=== PATIENT | female | born 1975 ===

== ENCOUNTER 2025-03-27 21:49 | Inpatient (IN) | payer MEDICAID, OTHER ==
[~2025-03-27] VITALS: Ht 154.9 cm; Wt 75.6 kg
--- NOTE | 2025-03-27 22:57 | ED.PDOC ---
SOB-HPI HPI Comments HPI: Poor Historian. 50-year-old female presents to emergency department for flu-like symptoms for two days. She complains of fever,cough/n/v/chills/dizzy/holland. Patient took some ibuprofen at home. Patient is febrile here in the ED. Denies any sick contacts. Patient was found tachycardic in triage with a fever of 102 and blood sugar of 544. Past Medical History: Hypertension, diabetes, hyperlipidemia Past Surgical History: Tonsillectomy and REVIEW OF SYSTEMS: CONSTITUTIONAL: Denies acute: diaphoresis, HEAD: Denies acute: photophobia Eyes: Denies acute: Double vision, vision loss, eye pain, eye discharge. EARS: Denies acute: tinnitus, hearing loss, ear discharge, ear pain, THROAT: Denies acute: sore throat, swelling, difficulty swallowing , pain with swallowing, change in voice. NECK: Denies acute: neck pain, neck swelling, stiff neck. HEART: Denies acute : chest pain, palpitations, LUNGS: Denies acute: SOB, wheezing, cough, hemoptysis ABDOMEN: Denies acute: abdominal pain, diarrhea, melena , hematemesis, hematochezia SKIN: Denies acute: rash, redness, lesions, itchiness. EXTREMITIES: Denies acute: calf pain, numbness, tingling, weakness, denies pain in extremity. Denies acute: Low back pain. Neuro: Denies acute: focal neurological deficit, motor or sensory focal neurological deficit, tremors, seizure like activity, confusion, change in mental status, loss of bowel or bladder function, cauda equina like symptoms. : Denies acute: dysuria, hematuria, flank pain, increase in urinary frequency. PSYCH: Denies acute: hallucination, suicidal ideation, homicidal ideation. FEMALE: Denies acute: abnormal vaginal bleeding, foul odor, unusual discharge. PHYSICAL EXAM: General: -----[id number]---acute distress, awake and alert. Head: normocephalic, atraumatic. Neck: supple, trachea is midline, no swelling. Throat: Normal phonation. Eyes:, no erythema, no purulent discharge, no proptosis, no icterus. Heart: regular tachycardia in the setting of fever, no significant murmur appreciated. Lungs: no apparent respiratory distress, No wheezing, no rhonchi, no crackles. No stridors Clear to auscultation bilaterally. Abdomen: non tender to palpation, non distended, soft, no guarding, no rebound, + bowel sounds. Neuro: Awake, Alert, oriented to name, self, situation, follows commands GCS=15. Speech is normal. Skin: no petechia, no purpura, no cyanosis, slightly-pale, not jaundice. Lower extremities: --no - Pitting edema no deformity, no focal swelling, no calf TTP. Makes eye contact. moves all four extremities. Face: no apparent facial droop. Ambulating in the ED independently. No nuchal rigidity, Kernig's sign, Brudzinski's sign, no meningeal signs. ED COURSE: Time Seen by MD: 21:53 Reviewed notes: Nurses Notes, Allergies Information Source: Patient Was a procedure done? Was a procedure done?: No Differential Dx Differential Diagnosis: Other (Includes but not limited to thyroid disease, encephalopathy, electrolyte abnormality, sepsis, infection, intracranial pathology, drug adverse effects, arrhythmia, kidney insufficiency, ACS, CVA, malignancy, anemia) X-Ray, Labs, Meds, VS Vital Signs Date Time Temp Pulse Resp B/P (MAP) Pulse Ox O2 Delivery O2 Flow Rate FiO2 03/28/25 00:36 102.0 03/27/25 23:14 102.8 137 18 117/75 (89) 94 102.8 Lab Test 03/28/25 01:00 03/27/25 23:49 03/27/25 23:08 03/27/25 22:55 Range/Units Blood Gas Specimen Type Arterial Blood Gas Sample Site Right radial Blood Gas Patient Temperature 37.0 Arterial Blood Date Drawn [id number] Arterial Blood pH 7.356 7.350-7.450 Arterial Blood Partial Pressure CO2 26.0 L 32.0-45.0 mmHg Arterial Blood Partial Pressure O2 72.2 L 83.0-108.0 mmHg Arterial Blood HCO3 14.2 L 21.0-28.0 mmol/L Arterial Blood Oxygen Saturation 93.7 L 94.0-98.0 % Arterial Blood Base Excess -9.6 L -2.0-3.0 mmol/L Arterial Blood Oxyhemoglobin 92.6 L 94.0-98.0 % Arterial Blood Carboxyhemoglobin 0.8 0.5-1.5 % Arterial Blood Methemoglobin 0.4 0.0-1.5 % Denzel Test Yes Blood Gas Total Hemoglobin 13.30 12.0-16.0 g/dL Blood Gas Modality Room air FiO2 % 21.0 Troponin I High Sensitivity < 3 L < 3 L </=34 ng/L White Blood Count 5.5 4.4-10.8 10^3/uL Red Blood Count 4.56 4.0-5.20 10^6/uL Hemoglobin 13.6 12.2-16.2 g/dL Hematocrit 40.8 36.0-46.0 % Mean Corpuscular Volume 89.5 80.0-100.0 fL Mean Corpuscular Hemoglobin 29.8 28.0-32.0 pg Mean Corpuscular Hemoglobin Concent 33.3 32.0-36.0 g/dL Red Cell Distribution Width 13.9 11.8-14.3 % Platelet Count 170 140-450 10^3/uL Mean Platelet Volume 10.5 6.9-10.8 fL Neutrophils (%) (Auto) 87.0 H 37.0-80.0 % Lymphocytes (%) (Auto) 6.9 L 10.0-50.0 % Monocytes (%) (Auto) 5.6 0.0-12.0 % Eosinophils (%) (Auto) 0.2 0.0-7.0 % Basophils (%) (Auto) 0.3 0.0-2.0 % Neutrophils # (Auto) 4.8 1.6-8.6 10 ^3/uL Lymphocytes # (Auto) 0.4 0.4-5.4 10 ^3/uL Monocytes # (Auto) 0.3 0-1.3 10 ^3/uL Eosinophils # (Auto) 0 0-0.8 10 ^3/uL Basophils # (Auto) 0 0-0.2 10 ^3/uL Nucleated Red Blood Cells 0.1 % Sodium Level 134 L 136-145 mmol/L Potassium Level 4.1 3.5-5.1 mmol/L Chloride Level 103 98-107 mmol/L Carbon Dioxide Level 17 L 20-31 mmol/L Anion Gap 14 5-15 Blood Urea Nitrogen 13 9-23 mg/dL Creatinine 0.96 0.550-1.02 mg/dL Glomerular Filtration Rate Calc 72 >90 mL/min BUN/Creatinine Ratio 13.5 10.0-20.0 Serum Glucose 576 *H 74-106 mg/dL Hemoglobin A1c 11.6 H <5.7 % A1C Lactic Acid Level 3.2 *H 0.4-2.0 mmol/L Calcium Level 11.2 H 8.7-10.4 mg/dL Magnesium Level 1.9 1.6-2.6 mg/dL Total Bilirubin 0.8 0.2-1.0 mg/dL Aspartate Amino Transferase (AST) 29 13-40 U/L Alanine Aminotransferase (ALT) 29 7-40 U/L Alkaline Phosphatase 155 H 46-116 U/L Total Protein 7.8 5.7-8.2 g/dL Albumin 4.5 3.2-4.8 g/dL Beta-Hydroxybutyric Acid 2.606 H < 0.4 mmol/L POC Glucose 544 *H 70-106 mg/dl Test 03/27/25 22:53 03/27/25 00:00 Range/Units POC Glucose 515 *H 70-106 mg/dl Influenza Type A Antigen Negative Negative Influenza Type B Antigen Negative Negative SARS-CoV-2 Antigen (Rapid) Negative NEGATIVE Current Medications Medications (Trade) Dose Ordered Sig/Sanjeev Route Start Time Stop Time Status Last Admin Sodium Chloride 1,000 ml @ 1,000 mls/hr Q1H ONCE IV 03/27/25 23:00 03/27/25 23:59 DC 03/28/25 00:00 Acetaminophen (Tylenol Tablet Or Capsule) 1,000 mg ONCE STAT PO 03/27/25 22:54 03/28/25 00:00 DC 03/28/25 00:36 Ondansetron HCl (Zofran) 8 mg ONCE ONCE IV 03/27/25 23:00 03/28/25 00:00 DC 03/28/25 00:36 Insulin Human Regular (InsuLIN R) 5 units ONCE ONCE IV 03/27/25 23:00 03/28/25 00:00 DC 03/28/25 00:30 Ceftriaxone Sodium 50 ml @ 100 mls/hr ONCE ONCE IV 03/28/25 00:15 03/28/25 00:44 DC 03/28/25 00:47 [facility] [id number] [place] [id number] Ph: [phone] DIAGNOSTIC IMAGING Diagnostic Imaging Report : [id number] Signed PATIENT: TUNDE ESTEVESCT: [id number] UNIT: [id number] : 1975 LOC: ER ROOM / BED: / AGE / SEX: 50 / F ADM STATUS: REG ER SERVICE 45 ORDERING PHYSICIAN: DURGA MARCOS DO PROCEDURE(s): CXRP - CHEST PORTABLE REASON: fever,cough/n/v/chills/dizzy/holland. ORDER NUMBER(s): [id number], ACCESSION NUMBER(s): [id number] CHEST RADIOGRAPH Indication: fever,cough/n/v/chills/dizzy/holland. Technique: Single frontal view of the chest was obtained Comparison: None FINDINGS: Lines and Tubes: None Lungs: Clear Pleura: No effusion. No pneumothorax. Cardiomediastinal contours: Unremarkable Bones: Unremarkable IMPRESSION: Clear lungs. ATED BY: EMELIA CASIANO DO DICTATED DATE/TIME: 03/28/2531 SIGNED BY: EMLEIA CASIANO DO SIGNED DATE/TIME: 03/28/2531 CC: Time of 1ST Reevaluation: 01:11 Reevaluation 1ST: Improved Patient Education/Counseling: Diagnosis, Treatment Family Education/Counseling: Other Comments Patient presented with the above HPI.---flu-like symptoms and generalized weakness---workup was initiated. patient was found with the above mentioned diagnosis. the following medications were ordered: please refer to order lists of meds and tests obtained by myself Dr. Marcos. Patient ED course and VS have been stabilized. Patient has been reassessed in the ED and remained in a stable condition. Pertinent incidental findings were discussed with the patient and/or family. Patient/family voices understanding and is agreeable with plan. Patient has been observed in the ED adequate length of time to insure improvement/stability. Escalation of care considered: Consideration of escalation to observation or admission Hyperglycemia was treated. Patient was given fluids and insulin. Patient was ADMITTED to the medicine team for further evaluation and treatment of their presentation. All the reports of any imaging studies that were ordered by myself were reviewed by myself. Departure 1 Departure Time of Disposition: 23:03 Impression: Primary Impression: Sepsis Additional Impressions: Hyperglycemia Fever and chills Disposition: 09 ADMITTED INPATIENT Admit to: Tele Condition: Guarded Discharged With: Self Critical Care Note Critical Care Time?: Yes (35 min-critical care time only) Heart Score Heart Score: Heart Score Response (Comments) Value History Slightly Suspicious 0 EKG Normal 0 Age 45-64 1 Risk Factors >3 or Hx ASHD 2 Troponin Normal limit 0 Total 3 DURGA MARCOS DO Mar 27, 2025 22:57
[2025-03-27 23:34] LABS: Basophils # (auto) 0 10 ^3/uL (0-0.2); Basophils % (auto) 0.3 % (0.0-2.0); Eosinophils # (auto) 0 10 ^3/uL (0-0.8); Eosinophils % (auto) 0.2 % (0.0-7.0); Hematocrit 40.8 % (36.0-46.0); Hemoglobin 13.6 g/dL (12.2-16.2); Lymphocytes # (auto) 0.4 10 ^3/uL (0.4-5.4); Lymphocytes % (auto) 6.9 % (10.0-50.0); Mean Corpuscular Hemoglobin 29.8 pg (28.0-32.0); Mean Corpuscular Hgb Conc. 33.3 g/dL (32.0-36.0); Mean Corpuscular Volume 89.5 fL (80.0-100.0); Monocytes # (auto) 0.3 10 ^3/uL (0-1.3); Monocytes % (auto) 5.6 % (0.0-12.0); Neutrophils # (auto) 4.8 10 ^3/uL (1.6-8.6); Nucleated Red Blood Cells % 0.1 %; Platelet Count (auto) 170 10^3/uL (140-450); Red Blood Cells 4.56 10^6/uL (4.0-5.20); Red Cell Distribution Width 13.9 % (11.8-14.3); White Blood Cell 5.5 10^3/uL (4.4-10.8)
[2025-03-27 23:53] LABS: Alanine Aminotransferase 29 U/L (7-40); Albumin 4.5 g/dL (3.2-4.8); Anion Gap 14 (5-15); Aspartate Aminotransferase 29 U/L (13-40); BUN/Creatinine Ratio 13.5 (10.0-20.0); Blood Urea Nitrogen 13 mg/dL (9-23); Chloride 103 mmol/L (98-107); Magnesium 1.9 mg/dL (1.6-2.6); Potassium 4.1 mmol/L (3.5-5.1); Total Protein 7.8 g/dL (5.7-8.2)
[2025-03-27 23:54] LABS: Bilirubin, Total 0.8 mg/dL (0.2-1.0)
[2025-03-27 23:55] LABS: Lactic Acid w/Reflex 3.2 mmol/L (0.4-2.0)
[2025-03-27 23:56] LABS: Carbon Dioxide 17 mmol/L (20-31); Sodium 134 mmol/L (136-145)
[2025-03-27 23:57] LABS: Alkaline Phosphatase 155 U/L (46-116); Calcium 11.2 mg/dL (8.7-10.4)
[2025-03-27 23:58] LABS: Glucose 576 mg/dL (74-106)
[2025-03-28 00:08] LABS: Rapid Influenza A Negative (Negative); Rapid Influenza B Negative (Negative)
[2025-03-28 00:09] LABS: COVID19 ANTIGEN SOFIA FIA NEGATIVE (NEGATIVE)
[2025-03-28] MEDS: InsuLIN REG 1unit/0.01ml Soln (100units/ml) IV ONE (00:30)
--- NOTE | 2025-03-28 00:35 | DVH ---
CHEST RADIOGRAPH Indication: fever,cough/n/v/chills/dizzy/holland. Technique: Single frontal view of the chest was obtained Comparison: None FINDINGS: Lines and Tubes: None Lungs: Clear Pleura: No effusion. No pneumothorax. Cardiomediastinal contours: Unremarkable Bones: Unremarkable IMPRESSION: Clear lungs.
[2025-03-28] MEDS: ONDANSETRON HCL 4 MG/2 ML VIAL IV ONE (00:36)
[2025-03-28] MEDS: ACETAMINOPHEN 500 MG TAB or CAP PO STA (00:36)
[2025-03-28] MEDS: cefTRIAXone 1GM/50ML D5W 50 ML IV ONE ×2 (00:47→13:46)
[2025-03-28 01:09] LABS: Base Excess -9.6 mmol/L (-2.0-3.0)
[2025-03-28] MEDS ORDERED: DEXTROSE (50%) 50ML SYRG IV PRN ×4 (01:30→20:15)
--- NOTE | 2025-03-28 01:49 | DVHHPRES ---
History of Present Illness Resident Creating Document: REJI BROWNE History of Present Illness This is a 50-year-old female with past medical history of primary hypertension, type 2 diabetes mellitus, dyslipidemia who presented to the ED generalized body aches associated with nausea vomiting and dizziness. Patient also reported mild chills and headache, which according to the patient started two days ago but got worse recently prompting the visit to the ED. the patient states that she is not able to tolerate any food or liquids and is currently complaining of abdominal pain and nausea. On admission, patient was alert and oriented but slightly dizzy complaining of abdominal pain and nausea. Initial blood workup showed blood glucose of 576, anion gap of 14, ABG showed a pH of 7.35 with a bag HC03 of 14.2 and a beta hydroxybutyric acid of 2606. Based on symptoms and previous mentioned it labs patient might be cursing with mild resolving DKA. We will start the patient on IV fluids, insulin drip, potassium replacement and electrolytes monitoring. We will admit the patient for further assessment and management. Past medical history: Hypertension, type 2 diabetes, dyslipidemia Home medications: Motrin, metformin 1000 mg b.i.d., Norvasc (does not recall the dose) Surgical history: One and tonsillectomy Social history: Denies drug consumption, alcohol consumption or smoking. Cardiovascular: HTN, hyperipidemia Endocrine: Diabetes Past Surgical History: , Tonsillectomy Family History: None Smoke: No ALCOHOL: none Drugs: None Lives: with Family Domestic Violence: Neg Review of Systems Constitutional: Yes: Chills, Weakness; No: Fever, Sweats, Malaise, Other Eyes: No: Pain, Vision change, Conjunctivae inflammation, Eyelid inflammation, Other, Redness ENT: No: Ear pain, Ear discharge, Nose pain, Nose discharge, Nose congestion, Mouth pain, Mouth swelling, Throat pain, Throat swelling, Other Respiratory: No: Cough, Dry, Shortness of breath, SOB with excertion, Wheezing, Hemoptysis, Pleuritic Pain, Sputum, Wheezing, Other Cardiovascular: No: Chest Pain, Palpitations, Orthopnea, Paroxysmal Noc. Dyspnea, Edema, Lt Headedness, Other Gastrointestinal: Nausea, Vomiting, Abdominal Pain; No: Diarrhea, Constipation, Melena, Hematochezia, Other Genitourinary: No Dysuria, No Frequency, No Incontinence, No Hematuria, No Retention, No Other Musculoskeletal: No: other, neck pain, shoulder pain, arm pain, back pain, hand pain, leg pain, foot pain Skin: No: Rash, Lesions, Jaundice, Bruising, Other Neurological: No: Weakness, Numbness, Incoordination, Change in speech, Confusion, Seizures, Other Allergies: Coded Allergies: No Known Drug Allergy (Verified Allergy, Unknown, 03/27/25) Exam Vital Signs Vital Signs Date Time Temp Pulse Resp B/P (MAP) Pulse Ox O2 Delivery O2 Flow Rate FiO2 03/28/25 00:36 102.0 03/27/25 23:14 137 18 117/75 (89) 94 General Appearance: Alert, Oriented X3, Cooperative, mild distress HEENT: Atraumatic, PERRLA, EOMI, Other (Dry mucous membranes) Respiratory: Clear to auscultation, Normal air movement Cardiovascular: Regular rate, Normal S1, Normal S2, No murmurs Abdominal: Normal bowel sounds, Soft, Other (There is periumbilical abdominal tenderness to palpation) Extremities: No clubbing, No cyanosis, No edema, Normal pulses, No tenderness/swelling Skin: No rashes, No breakdown, No significant lesion Neuro: Normal gait, Normal speech, Strength at 5/5 X4 ext, Normal tone, Sensation intact, Cranial nerves 3-12 NL, Reflexes 2+ Psych/Mental Status: Mental status NL Labs/Xrays Labs Test 03/28/25 01:00 03/27/25 23:49 03/27/25 23:08 03/27/25 22:55 Range/Units Blood Gas Specimen Type Arterial Blood Gas Sample Site Right radial Blood Gas Patient Temperature 37.0 Arterial Blood Date Drawn Arterial Blood pH 7.356 7.350-7.450 Arterial Blood Partial Pressure CO2 26.0 L 32.0-45.0 mmHg Arterial Blood Partial Pressure O2 72.2 L 83.0-108.0 mmHg Arterial Blood HCO3 14.2 L 21.0-28.0 mmol/L Arterial Blood Oxygen Saturation 93.7 L 94.0-98.0 % Arterial Blood Base Excess -9.6 L -2.0-3.0 mmol/L Arterial Blood Oxyhemoglobin 92.6 L 94.0-98.0 % Arterial Blood Carboxyhemoglobin 0.8 0.5-1.5 % Arterial Blood Methemoglobin 0.4 0.0-1.5 % Denzel Test Yes Blood Gas Total Hemoglobin 13.30 12.0-16.0 g/dL Blood Gas Modality Room air FiO2 % 21.0 Troponin I High Sensitivity < 3 L </=34 ng/L White Blood Count 5.5 4.4-10.8 10^3/uL Red Blood Count 4.56 4.0-5.20 10^6/uL Hemoglobin 13.6 12.2-16.2 g/dL Hematocrit 40.8 36.0-46.0 % Mean Corpuscular Volume 89.5 80.0-100.0 fL Mean Corpuscular Hemoglobin 29.8 28.0-32.0 pg Mean Corpuscular Hemoglobin Concent 33.3 32.0-36.0 g/dL Red Cell Distribution Width 13.9 11.8-14.3 % Platelet Count 170 140-450 10^3/uL Mean Platelet Volume 10.5 6.9-10.8 fL Neutrophils (%) (Auto) 87.0 H 37.0-80.0 % Lymphocytes (%) (Auto) 6.9 L 10.0-50.0 % Monocytes (%) (Auto) 5.6 0.0-12.0 % Eosinophils (%) (Auto) 0.2 0.0-7.0 % Basophils (%) (Auto) 0.3 0.0-2.0 % Neutrophils # (Auto) 4.8 1.6-8.6 10 ^3/uL Lymphocytes # (Auto) 0.4 0.4-5.4 10 ^3/uL Monocytes # (Auto) 0.3 0-1.3 10 ^3/uL Eosinophils # (Auto) 0 0-0.8 10 ^3/uL Basophils # (Auto) 0 0-0.2 10 ^3/uL Nucleated Red Blood Cells 0.1 % Sodium Level 134 L 136-145 mmol/L Potassium Level 4.1 3.5-5.1 mmol/L Chloride Level 103 98-107 mmol/L Carbon Dioxide Level 17 L 20-31 mmol/L Anion Gap 14 5-15 Blood Urea Nitrogen 13 9-23 mg/dL Creatinine 0.96 0.550-1.02 mg/dL Glomerular Filtration Rate Calc 72 >90 mL/min BUN/Creatinine Ratio 13.5 10.0-20.0 Serum Glucose 576 *H 74-106 mg/dL Hemoglobin A1c 11.6 H <5.7 % A1C Lactic Acid Level 3.2 *H 0.4-2.0 mmol/L Calcium Level 11.2 H 8.7-10.4 mg/dL Magnesium Level 1.9 1.6-2.6 mg/dL Total Bilirubin 0.8 0.2-1.0 mg/dL Aspartate Amino Transferase (AST) 29 13-40 U/L Alanine Aminotransferase (ALT) 29 7-40 U/L Alkaline Phosphatase 155 H 46-116 U/L Total Protein 7.8 5.7-8.2 g/dL Albumin 4.5 3.2-4.8 g/dL Beta-Hydroxybutyric Acid 2.606 H < 0.4 mmol/L POC Glucose 544 *H 70-106 mg/dl Test 03/27/25 00:00 Range/Units Influenza Type A Antigen Negative Negative Influenza Type B Antigen Negative Negative SARS-CoV-2 Antigen (Rapid) Negative NEGATIVE Assessment/Plan Assessment/Plan Assessment/plan Acute abdominal tenderness likely due to mild resolving DKA Early/mild resolving DKA Possible UTI Primary hypertension Dyslipidemia Plan -initial chest x-ray was grossly unremarkable -initial blood glucose was 576, with a slightly elevated anion gap at 14, patient was complaining of abdominal pain nausea vomiting and unable to tolerate foods or liquid. -beta hydroxybutyric acid came back elevated, ABG showed metabolic acidosis with respiratory compensation. Bicarb was 14.2 -gave IV fluids to 2 L bolus -start IV fluids NS 0.9% at 250 cc/hour -start insulin drip -potassium replacement -monitor electrolytes -switch to D5W with a 0.45% at 250 cc/hour once blood glucose drops around 250 and anion gap completely closes. -start amlodipine 5mg daily -NPO Goals of care discussed with the patient at bedside for >35min, FULL CODE Plan discussed with Dr. Marquez Plan discussed with: Patient My Orders Orders - REJI BROWNE RESIDENT Procedure Category Date Status Time Abg W/ Co-Ox RT 03/28/25 Logged 00:49 Communication Order ORDERS 03/28/25 Transmitted 00:49 Admit ADMIT 03/28/25 Transmitted 01:18 Code Status CODE 03/28/25 Transmitted 01:18 Vital Signs [facility] 03/28/25 In Process 01:18 Review Orders With [facility] 03/28/25 In Process Adm. 01:18 Encourage Activity As [facility] 03/28/25 In Process Tolerate 01:18 Npo (Nothing By DIET 03/28/25 Transmitted Mouth) Diet Breakfast Acetaminophen Tablet PHA 03/28/25 Transmitted (Tylenol Tablet) 01:30 Notify Md Of Changes [facility] 03/28/25 In Process From Base 01:18 Advance Directive [facility] 03/28/25 In Process 01:18 Basic Metabolic Panel LAB 03/28/25 Transmitted 06:00 Patient Condition ORDERS 03/28/25 Transmitted 01:18 Allergies [facility] 03/28/25 In Process 01:18 Drug Screen LAB 03/28/25 Transmitted 01:18 Potassium Effervesent [facility] 03/28/25 Transmitted Tab (Klor-Con/Ef) 01:30 NS PHA 03/28/25 Transmitted 01:30 Insulin Drip Protocol [facility] 03/28/25 In Process Insulin Algorithm # 1 PHA 03/28/25 Transmitted 01:30 Dextrose 50% Syringe [facility] 03/28/25 Transmitted 01:30 Glucose Blood [facility] 03/28/25 Transmitted (Accu-Chek Comfort 01:30 Basic Metabolic Panel LAB 03/28/25 Transmitted 01:18 Basic Metabolic Panel LAB 03/28/25 Transmitted 07:18 Basic Metabolic Panel LAB 03/28/25 Transmitted 13:18 Basic Metabolic Panel LAB 03/28/25 Transmitted 19:18 Neurological [facility] 03/28/25 Transmitted Assessment 01:18 Vs/Hemodynamics [facility] 03/28/25 Transmitted 01:18 Long Acting Insulin [facility] 03/28/25 Transmitted 01:30 Long Acting Insulin [facility] 03/29/25 Transmitted 10:00 Date of Service: Mar 28, 2025 Billing Provider: WILLIAM MARQUEZ MD Common Visit Codes: 67719-[id number] INP/OBS CARE (HIGH) Secondary Visit Codes: [id number] CARE PLAN 30 MINUTES REJI BROWNE RESIDENT Mar 28, 2025 01:49
--- NOTE | 2025-03-28 02:39 | DVH ---
INDICATION: acute abdominal pain TECHNIQUE: Multiple real-time sonographic images were obtained of the right upper quadrant. COMPARISON: None FINDINGS: The liver demonstrates diffuse increased echotexture without focal mass lesions. The liver measures 18.3 cm. Normal hepatopetal portal flow identified. No evidence of pleural effusion or abdo nir ascites. There is no intrahepatic or extrahepatic ductal dilatation. The common duct measures 0.7 cm. Nonmobile gallstone noted within the neck of the gallbladder. The gallbladder wall measures 0.2 cm an d is within normal limits. Negative sonographic goff's sign. The right kidney measures 10.3 cm. The right kidney is normal in contour, size, and shape. The echoge nicity is normal. There is no hydronephrosis. The pancreas is not well visualized due to overlying bowel gas. IMPRESSION: 1. Uncomplicated cholelithiasis. 2. Borderline hepatomegaly and hepatic steatosis. 3. Mildly dilated common bile duct.
[2025-03-28 03:58] LABS: Chloride 103 mmol/L (98-107); Potassium 4.1 mmol/L (3.5-5.1)
[2025-03-28 03:59] LABS: Anion Gap 14 (5-15)
[2025-03-28 04:02] LABS: Calcium 10.6 mg/dL (8.7-10.4); Carbon Dioxide 16 mmol/L (20-31); Sodium 133 mmol/L (136-145)
[2025-03-28 04:06] LABS: Glucose 542 mg/dL (74-106)
[2025-03-28 04:29] LABS: BUN/Creatinine Ratio 14.4 (10.0-20.0); Blood Urea Nitrogen 14 mg/dL (9-23)
[2025-03-28] MEDS: ACCU-CHEK COMFORT CURVE STRIP VI SCH ×2 (04:30→21:46)
[2025-03-28] MEDS: SODIUM CHLORIDE 0.9% 1,000 ML IV ONE ×3 (04:54→05:30)
[2025-03-28] MEDS: POTASSIUM EFFERVESENT TAB 25 MEQ PO ONE (04:54)
[2025-03-28] MEDS: INSULIN LANTUS (GLARGINE) 1 /0.01ml (100units/ml) SC ONE ×2 (05:01→18:27)
[2025-03-28 05:15] LABS: Chloride 104 mmol/L (98-107); Potassium 4.3 mmol/L (3.5-5.1)
[2025-03-28 05:16] LABS: Anion Gap 13 (5-15)
[2025-03-28 05:21] LABS: BUN/Creatinine Ratio 16.3 (10.0-20.0); Blood Urea Nitrogen 16 mg/dL (9-23)
[2025-03-28 05:30] LABS: Carbon Dioxide 17 mmol/L (20-31); Sodium 134 mmol/L (136-145)
[2025-03-28] MEDS: INSULIN DRIP 100 UNIT/100ML 100 ML IV SCH ×2 (05:31→19:21)
[2025-03-28 05:36] LABS: Glucose 532 mg/dL (74-106)
[2025-03-28] MEDS: KETOROLAC TROMETH 30 MG/ML 1ML VIAL IV ONE ×2 (06:31→22:33)
[2025-03-28 07:50] VITALS: PULSE 89; RESP 11; O2SAT 92
[2025-03-28 07:54] LABS: Anion Gap 12 (5-15); Potassium 4.2 mmol/L (3.5-5.1); Sodium 138 mmol/L (136-145)
[2025-03-28 07:57] LABS: Calcium 10.5 mg/dL (8.7-10.4); Carbon Dioxide 18 mmol/L (20-31); Chloride 108 mmol/L (98-107)
[2025-03-28 08:01] LABS: Blood Urea Nitrogen 15 mg/dL (9-23)
[2025-03-28 08:20] LABS: Glucose 471 mg/dL (74-106)
[2025-03-28 11:51] LABS: Urine Bacteria FEW /hpf (None Seen); Urine Blood 1+ /uL (Negative); Urine Budding Yeast FEW /hpf (None Seen); Urine Clarity Clear (Clear); Urine Color Light-Yellow (Yellow); Urine Protein, UAD TRACE (Negative); Urine Specific Gravity 1.032 (1.001-1.035); Urine Squamous Epithelial Cell FEW /hpf (<5); Urine Urobilinogen Normal (Negative); Urine WBC 4 /HPF (0-5); Urine pH 5.5 (5.0-9.0)
[2025-03-28 12:05] LABS: Amphetamine Screen, Urine Neg (NEGATIVE); Barbiturate Scree,Urine Neg (NEGATIVE); Benzodiazephine Screen, Urine Neg (NEGATIVE); Cannabinoid Screen, Urine Neg (NEGATIVE); Cocaine Screen, Urine Neg (NEGATIVE); Opiate Scree,Urine Neg (NEGATIVE); Phencyclidine Screen, Urine Neg (NEGATIVE)
[2025-03-28 12:24] LABS: Sodium 141 mmol/L (136-145)
[2025-03-28 12:25] LABS: Anion Gap 10 (5-15)
[2025-03-28 12:29] LABS: Carbon Dioxide 20 mmol/L (20-31); Chloride 111 mmol/L (98-107)
[2025-03-28 12:30] LABS: BUN/Creatinine Ratio 19.8 (10.0-20.0); Blood Urea Nitrogen 16 mg/dL (9-23)
[2025-03-28 12:32] LABS: Glucose 338 mg/dL (74-106)
[2025-03-28] MEDS: ONDANSETRON HCL 4 MG/2 ML VIAL IM ONE (13:43)
[2025-03-28 16:52] LABS: Sodium 141 mmol/L (136-145)
[2025-03-28 16:53] LABS: Anion Gap 9 (5-15); Carbon Dioxide 22 mmol/L (20-31)
[2025-03-28 16:58] LABS: BUN/Creatinine Ratio 23.7 (10.0-20.0); Blood Urea Nitrogen 18 mg/dL (9-23)
[2025-03-28 16:59] LABS: Calcium 10.5 mg/dL (8.7-10.4); Chloride 110 mmol/L (98-107); Glucose 230 mg/dL (74-106)
--- NOTE | 2025-03-28 17:43 | DVHPNRES ---
Progress Note Date Seen: Mar 28, 2025 Resident Creating Document: ROCK MCINTOSH RESIDENT Has the PT tested + for MRSA If YES, has PT been informed?: No Medical Necessity Reason Pt with a Central, PICC or Fol: No Medical Necessity Reason Patient is a 50-year-old female with multiple medical history including diabetes hypertension hyperlipidemia presented to the ED with a two days history of nausea vomiting and dizziness. Per patient, she is she has been taking her metformin at 1000 mg b.i.d. and has been complaint compliant; However, over the past 2 days she has noticed that she has just been generally general [place] feeling weak with abdominal pain and nausea and vomiting. Patient also complained of lower abdominal pain with radiation to the left side flank region. Given the unbearable situation patient decided to come to the ED for evaluation when patient came to the ED initial assessment revealed blood glucose of 576, anion gap of 14, ABG showed a pH of 7.35 with a bag HC03 of 14.2 and a beta hydroxybutyric acid of 2606. Based on symptoms and previous mentioned it labs patient might be cursing with mild resolving DKA. We will start the patient on IV fluids, insulin drip, potassium replacement and electrolytes monitoring. Subjective Review of Systems Constitutional: Denies fever, but has chills HEENT: Denies headache, ear pain, ear discharges, conjunctivitis, nasal discharge throat pain Cardiovascular: Denies chest pain, palpitation, orthopnea, PND, or pedal edema Respiratory: Denies shortness of breath, cough cough, sputum production, hemoptysis, GI: denies nausea, vomiting, diarrhea, hematemesis, hematochezia, :lower abdominal pain with radiation to the left flank; Denies frequency, urgency, hematuria, Endocrine: Denies unintentional weight gain or weight loss, feeling of hot flashes, Jason: Denies easy bruising, bleeding disorders, epistaxis Musculoskeletal: Denies joint pains, muscle aches Psych: No evidence of depression, adeola, suicidal ideation Objective vital signs Vital Sign Date Time Temp Pulse Resp B/P (MAP) Pulse Ox O2 Delivery O2 Flow Rate FiO2 03/28/25 16:18 88 16 105/84 (91) 99 03/28/25 07:50 Room Air* 0 21 03/28/25 07:30 97.3 97.3 medications Current Medications Medications Dose Ordered Sig/Sanjeev Route Start Time Stop Time Status Last Admin Dose Admin Acetaminophen 650 mg Q6HP PRN PO 03/28/25 01:30 Insulin Human (Reg)/Sodium Chloride 100 ml @ 0.5 mls/hr Q24H IV 03/28/25 01:30 03/28/25 05:31 0.5 MLS/HR Dextrose 50 ml UD PRN IV 03/28/25 01:30 Diagnostic Test (Pha) 1 strip Q90MIN 03/28/25 01:30 03/28/25 16:32 1 STRIP Insulin Glargine 15 units DAILY SC 03/29/25 10:00 Ondansetron HCl 4 mg Q6HPRN PRN IV 03/28/25 12:00 Ceftriaxone Sodium 50 ml @ 100 mls/hr DAILY@09 IV 03/29/25 09:00 Examination General Appearance: Alert, Oriented X3, Cooperative,Mild distress HEENT: Atraumatic, PERRLA, EOMI, Mucous membrane moist/pink Respiratory: Clear to auscultation, Normal air movement Cardiovascular: Regular rate, Normal S1, Normal S2, No murmurs, no chest wall tenderness Abdominal: NO distention,left sided tenderness, bowel sounds present, no scars noted Extremities: No clubbing, No cyanosis, No edema, Normal pulses, No tenderness/swelling Skin: No rashes, No breakdown, No significant lesion Neuro: Normal gait, Normal speech, Strength at 5/5 X4 ext, Normal tone, Sensation intact, Cranial nerves 3-12 NL, Reflexes 2+ Psych/Mental Status: Mental status NL, Mood NL laboratory and microbiology Laboratory Tests 03/28/25 16:20 03/27/25 23:08 Test 03/28/25 16:20 Range/Units Serum Glucose 230 H 74-106 mg/dL Microbiology Date/Time Source Procedure Growth Status 03/27/25 23:08 Blood Blood Culture - Preliminary Resulted Problem List/Assessment/Plan Problem List/Assessment/Plan Assessment/plan Neuro: Alert and oriented Cardiovascular: Hypertension -Continue amlodipine 5mg daily Pulmonary: Metabolic acidosis with almost respiratory compensation - Monitor Spo2 - Monitor respiration - If warranted, repeat ABG GI : Uncomplicated cholelithiasis. Borderline hepatomegaly and hepatic steatosis. Mildly dilated common bile duct nausea - Zofran : left flank pain, likely pyelonephritis UTI - Ceftriaxone - [place] and Tylenol Metabolic: Acute abdominal tenderness likely due to mild resolving DKA Hgb A1c: 11.5 Early/mild resolving DKA Diabetes Melllitus type II Dyslipidemia Hyponatremia - insulin drip - NS - NPO - Switch to D5W with a 0.45% at 250 cc/hour once blood glucose drops around 250 and anion gap completely closes overlap for 2 hours then stop the IV insulin Infectious Disease: UTI possible Bacteremia - Urine culture pending - Blood culture pending - Continue Ceftriaxone DIET: NPO DVT prophylax: Lovenox GI prophylaxis: Protonix Bowel regimen: Code status: Full code LINES/DRAINS/ACCESS: IV access: Peripheral Drips: Insulin Sanchez catheter: None DISPOSITION: ICU/PRAVIN status Patient's status discussed with patient and Critical care time spent more than 41 minutes. Case discussed with Dr. Palmer Plan discussed with: Other (RN) Plan discussed with: Patient My Orders My Orders Orders - ROCK MCINTOSH Procedure Category Date Status Time Ondansetron Hcl PHA 03/28/25 In Process (Zofran) 12:00 Urine Bacterial DONNIE 03/28/25 In Process Culture 11:59 Ceftriaxone 1gm/50ml PHA 03/29/25 In Process D5w (Rocephin) 09:00 ROCK MCINTOSH RESIDENT Mar 28, 2025 17:43
[2025-03-28] MEDS ORDERED: INSULIN DRIP 100 UNIT/100ML 100 ML IV SCH (17:45)
[2025-03-28] MEDS: D5W/SOD CHL 0.45% 1,000 ML IV ONE (19:20)
[2025-03-28 19:25] LABS: Potassium 3.9 mmol/L (3.5-5.1); Sodium 139 mmol/L (136-145)
[2025-03-28 19:26] LABS: Anion Gap 9 (5-15); Carbon Dioxide 21 mmol/L (20-31)
[2025-03-28 19:31] LABS: BUN/Creatinine Ratio 20.8 (10.0-20.0); Blood Urea Nitrogen 16 mg/dL (9-23)
[2025-03-28 19:37] LABS: Chloride 109 mmol/L (98-107); Glucose 259 mg/dL (74-106)
[2025-03-28 20:25] VITALS: PULSE 93; RESP 21; O2SAT 92
[2025-03-28] MEDS: ONDANSETRON HCL 4 MG/2 ML VIAL IV PRN (20:36)
[2025-03-28] MEDS: ACETAMINOPHEN 325 MG TAB PO PRN (20:37)
[2025-03-28] MEDS: InsuLIN REG 1unit/0.01ml Soln (100units/ml) SC SCH (21:44)
[2025-03-28] MEDS: ACETAMINOPHEN 325 MG TAB PO ONE (22:34)
[2025-03-28 23:15] VITALS: BP 139/76; PULSE 79; RESP 22; TEMP 99; O2SAT 92
[2025-03-29] VITALS (20 sets, daily range): BP systolic 125–167; BP diastolic 53–101; PULSE 65–81; RESP 11–22; TEMP 97.1–99; O2SAT 86–95
[2025-03-29] MEDS: InsuLIN REG 1unit/0.01ml Soln (100units/ml) SC SCH (06:39)
[2025-03-29] MEDS: cefTRIAXone 1GM/50ML D5W 50 ML IV SCH (09:11)
[2025-03-29] MEDS: INSULIN LANTUS (GLARGINE) 1 /0.01ml (100units/ml) SC SCH (09:13)
--- NOTE | 2025-03-29 16:25 | DVHPN2 ---
Subjective Some cough. Clear sputum. Some headache. Still some vomit Reviewed: Care Plan, H&P, Labs, Medications, Previous Orders, Radiology, Other Changes from previous H/P or p: No Changes Gastrointestinal: Nausea, Vomiting, Abdominal Pain Objective Vitals Vital Signs Date Time Temp Pulse Resp B/P (MAP) Pulse Ox O2 Delivery O2 Flow Rate FiO2 03/29/25 15:00 129/66 (87) Manual Cuff/Auscultation 03/29/25 14:00 79 13 91 03/29/25 12:00 98.6 98.6 03/29/25 08:00 Room Air* 0 21 Intake/Output Intake and Output 03/29/25 07:00 Intake Total 150 ml Balance 150 ml Intake Oral 100 ml IV Total 50 ml # Voids 1 General Appearance: Alert, Oriented X3, Cooperative, No acute distress HEENT: Atraumatic Lungs: Clear to auscultation Cardiovascular: Regular rate Abdomen: Normal bowel sounds, Soft, Other (With tenderness in bilateral abdominal areas) Medications Current Medications Medications Dose Ordered Sig/Sanjeev Route Start Time Stop Time Status Last Admin Dose Admin Acetaminophen 650 mg Q6HP PRN PO 03/28/25 01:30 03/29/25 14:12 650 MG Insulin Glargine 15 units DAILY SC 03/29/25 10:00 03/29/25 09:13 15 UNITS Ondansetron HCl 4 mg Q6HPRN PRN IV 03/28/25 12:00 03/29/25 09:28 4 MG Ceftriaxone Sodium 50 ml @ 100 mls/hr DAILY@09 IV 03/29/25 09:00 03/29/25 09:11 100 MLS/HR Diagnostic Test (Pha) 1 strip ACHS 03/28/25 22:00 03/29/25 11:30 1 STRIP Insulin Human Regular HS SC 03/28/25 22:00 03/28/25 21:44 6 UNITS Insulin Human Regular AC SC 03/29/25 07:00 03/29/25 12:46 6 UNITS Dextrose 50 ml UD PRN IV 03/28/25 20:15 Laboratory Results Laboratory Tests 03/27/25 23:08 03/28/25 19:06 Chemistry Test 03/28/25 19:06 Calcium Level 11.0 mg/dL (8.7-10.4) H Urinalysis Test 03/28/25 11:43 Urine Color Light-yellow (Yellow) Urine Clarity Clear (Clear) Urine pH 5.5 (5.0-9.0) Urine Specific [place] 1.032 (1.001-1.035) Urine Protein Trace (Negative) H Urine Ketones 2+ (Negative) H Urine Blood 1+ /uL (Negative) H Urine Nitrite 2+ (Negative) H Urine Bilirubin Negative (Negative) Urine Urobilinogen Normal mg/dL (Negative) Urine Leukocyte Esterase Negative /uL (Negative) Urine RBC 13 /hpf (0 - 4) Urine Microscopic WBC 4 /HPF (0-5) Urine Squamous Epithelial Cells Few /hpf (<5) Urine Bacteria Few /hpf (None Seen) H Urine Yeast (Budding) Few /hpf (None Seen) Urine Glucose 4+ mg/dL (Normal) H Microbiology Microbiology Date/Time Source Procedure Growth Status 03/28/25 23:45 Nose MRSA Screen - Final Complete 03/28/25 11:43 Voided Urine Urine Culture - Preliminary Resulted 03/27/25 23:08 Blood Blood Culture - Preliminary Resulted Assessment/Plan Assessment/Plan Bacteremia with Gram-negative satnam/possible sepsis Abdominal pain Mild DKA/resolved UTI Mild dilated common bile duct Cholelithiasis Hypercalcemia Hypertension Dyslipidemia Diabetes Obesity Plan: We will repeat calcium. Check PTH. Obtain MRCP. Further plan per orders Plan discussed with: Patient, Other (Nursing) Date of Service: Mar 29, 2025 Billing Provider: MALU ALVAREZ MD Common Visit Codes: [id number] CARE 30-74 MIN MALU ALVAREZ MD Mar 29, 2025 16:25
--- NOTE | 2025-03-29 18:30 | DVHINCON2 ---
Date of service: Mar 29, 2025 Referring Physician Smitha Burleson MD Reason for Consultation Metabolic acidosis History of Present Illness A 50-year-old woman with past medical history of hypertension, type 2 diabetes mellitus, and dyslipidemia who presented to ED on 03/27/25 with c/o generalized body aches associated with nausea, vomiting and dizziness. Patient also reported mild chills and headache, which according to the patient started 2 days prior but worsened recently, prompting visit to ED. Patient reported not being able to tolerate any food or liquids and c/o abdominal pain and nausea. Initial blood work showed blood glucose of 576, anion gap of 14. ABG showed metabolic acidosis with respiratory compensation. Bicarb was 14.2. Beta hydroxybutyric acid was 2606. Initial chest x-ray was grossly unremarkable. Patient was admitted for further care, and pulmonary consultation is requested for evaluation and management of metabolic acidosis. Review of Systems: 14-point review of systems negative unless otherwise noted above. Past Medical History: Hypertension, type 2 diabetes, dyslipidemia Past Surgical History: and tonsillectomy Medications: Reviewed. Allergies: No known drug allergies. Family History: No family history of premature CAD. No family history of lung disorders. Social History: Nonsmoker. No alcohol or illicit drug use. Allergies: Coded Allergies: No Known Drug Allergy (Verified Allergy, Unknown, 03/27/25) Current Medications Current Medications Medications (Trade) Dose Ordered Sig/Sanjeev Route PRN Reason Start Time Stop Time Status Last Admin Insulin Glargine (Lantus) 15 units DAILY SC 03/29/25 10:00 03/29/25 09:13 Ceftriaxone Sodium 50 ml @ 100 mls/hr DAILY@09 IV 03/29/25 09:00 03/29/25 09:11 Insulin Human (Reg)/Sodium Chloride 100 ml @ 0.5 mls/hr Q24H IV 03/28/25 18:30 03/28/25 20:09 DC Dextrose 50 ml UD PRN IV SEE CURRENT ALGORITHM or SCALE 03/28/25 18:30 03/28/25 18:27 DC Diagnostic Test (Pha) (Accu-Chek Comfort Curve T) 1 strip ACHS 03/28/25 22:00 03/29/25 16:55 Insulin Human Regular (InsuLIN R) HS SC 03/28/25 22:00 03/28/25 21:44 Insulin Human Regular (InsuLIN R) AC SC 03/29/25 07:00 03/29/25 16:55 Dextrose 50 ml UD PRN IV Blood Sugar LESS THAN 60 03/28/25 20:15 Vital Signs Vital Signs Date Time Temp Pulse Resp B/P (MAP) Pulse Ox O2 Delivery O2 Flow Rate FiO2 03/29/25 16:00 98.4 70 14 155/73 (100) 95 98.4 03/29/25 08:00 Room Air* 0 21 Physical Exam Gen.: Patient lying in bed in no apparent distress. Breathing on room air. Head: Normocephalic, atraumatic. Eyes: EOMI/PERRLA. Ears: Normal hearing. Normal anatomy. Neck/trachea: Trachea midline, supple. Nose: Normal external anatomy. Mouth: Moist mucous membranes. Chest: Decreased air entry bilaterally. No wheezing or rhonchi. Cardiovascular: Positive S1, positive S2. Regular rate and rhythm. Abdomen: Positive bowel sounds in all 4 quadrants. Soft, non-tender, non- distended. : Deferred. Rectal: Deferred. Skin: Warm, dry. Intact. Extremities: 2+ radial pulses bilaterally. No lower extremity edema. Neuro: Awake, alert, oriented x3. No gross motor or sensory deficits. Cranial nerves II through XII intact. Gait not assessed. Labs/Diagnostic Data Labs Test 03/29/25 17:24 03/29/25 16:52 03/28/25 19:06 03/28/25 11:43 Range/Units POC Glucose 199 H 70-106 mg/dl Sodium Level 139 136-145 mmol/L Potassium Level 3.9 3.5-5.1 mmol/L Chloride Level 109 H 98-107 mmol/L Carbon Dioxide Level 21 20-31 mmol/L Anion Gap 9 5-15 Blood Urea Nitrogen 16 9-23 mg/dL Creatinine 0.77 0.550-1.02 mg/dL Glomerular Filtration Rate Calc 93 >90 mL/min BUN/Creatinine Ratio 20.8 H 10.0-20.0 Serum Glucose 259 H 74-106 mg/dL Calcium Level 11.0 H 8.7-10.4 mg/dL Urine Color Light-yellow Yellow Urine Clarity Clear Clear Urine pH 5.5 5.0-9.0 Urine Specific [place] 1.032 1.001-1.035 Urine Protein Trace H Negative Urine Ketones 2+ H Negative Urine Blood 1+ H Negative /uL Urine Nitrite 2+ H Negative Urine Bilirubin Negative Negative Urine Urobilinogen Normal Negative mg/dL Urine Leukocyte Esterase Negative Negative /uL Urine RBC 13 0 - 4 /hpf Urine Microscopic WBC 4 0-5 /HPF Urine Squamous Epithelial Cells Few <5 /hpf Urine Bacteria Few H None Seen /hpf Urine Yeast (Budding) Few None Seen /hpf Urine Glucose 4+ H Normal mg/dL Urine Opiates Screen Neg NEGATIVE Urine Fentanyl Screen Neg NEGATIVE Urine Barbiturates Screen Neg NEGATIVE Urine Phencyclidine Screen Neg NEGATIVE Urine Amphetamines Screen Neg NEGATIVE Urine Benzodiazepines Screen Neg NEGATIVE Urine Cocaine Screen Neg NEGATIVE Urine Cannabinoids Screen Neg NEGATIVE Test 03/28/25 01:30 03/28/25 01:00 03/27/25 23:08 03/27/25 00:00 Range/Units Lactic Acid Level 2.8 *H 0.4-2.0 mmol/L Troponin I High Sensitivity < 3 L </=34 ng/L Blood Gas Specimen Type Arterial Blood Gas Sample Site Right radial Blood Gas Patient Temperature 37.0 Arterial Blood Date Drawn [id number] Arterial Blood pH 7.356 7.350-7.450 Arterial Blood Partial Pressure CO2 26.0 L 32.0-45.0 mmHg Arterial Blood Partial Pressure O2 72.2 L 83.0-108.0 mmHg Arterial Blood HCO3 14.2 L 21.0-28.0 mmol/L Arterial Blood Oxygen Saturation 93.7 L 94.0-98.0 % Arterial Blood Base Excess -9.6 L -2.0-3.0 mmol/L Arterial Blood Oxyhemoglobin 92.6 L 94.0-98.0 % Arterial Blood Carboxyhemoglobin 0.8 0.5-1.5 % Arterial Blood Methemoglobin 0.4 0.0-1.5 % Denzel Test Yes Blood Gas Total Hemoglobin 13.30 12.0-16.0 g/dL Blood Gas Modality Room air FiO2 % 21.0 White Blood Count 5.5 4.4-10.8 10^3/uL Red Blood Count 4.56 4.0-5.20 10^6/uL Hemoglobin 13.6 12.2-16.2 g/dL Hematocrit 40.8 36.0-46.0 % Mean Corpuscular Volume 89.5 80.0-100.0 fL Mean Corpuscular Hemoglobin 29.8 28.0-32.0 pg Mean Corpuscular Hemoglobin Concent 33.3 32.0-36.0 g/dL Red Cell Distribution Width 13.9 11.8-14.3 % Platelet Count 170 140-450 10^3/uL Mean Platelet Volume 10.5 6.9-10.8 fL Neutrophils (%) (Auto) 87.0 H 37.0-80.0 % Lymphocytes (%) (Auto) 6.9 L 10.0-50.0 % Monocytes (%) (Auto) 5.6 0.0-12.0 % Eosinophils (%) (Auto) 0.2 0.0-7.0 % Basophils (%) (Auto) 0.3 0.0-2.0 % Neutrophils # (Auto) 4.8 1.6-8.6 10 ^3/uL Lymphocytes # (Auto) 0.4 0.4-5.4 10 ^3/uL Monocytes # (Auto) 0.3 0-1.3 10 ^3/uL Eosinophils # (Auto) 0 0-0.8 10 ^3/uL Basophils # (Auto) 0 0-0.2 10 ^3/uL Nucleated Red Blood Cells 0.1 % Hemoglobin A1c 11.6 H <5.7 % A1C Magnesium Level 1.9 1.6-2.6 mg/dL Total Bilirubin 0.8 0.2-1.0 mg/dL Aspartate Amino Transferase (AST) 29 13-40 U/L Alanine Aminotransferase (ALT) 29 7-40 U/L Alkaline Phosphatase 155 H 46-116 U/L Total Protein 7.8 5.7-8.2 g/dL Albumin 4.5 3.2-4.8 g/dL Beta-Hydroxybutyric Acid 2.606 H < 0.4 mmol/L Influenza Type A Antigen Negative Negative Influenza Type B Antigen Negative Negative SARS-CoV-2 Antigen (Rapid) Negative NEGATIVE Microbiology Date/Time Source Procedure Growth Status 03/28/25 23:45 Nose MRSA Screen - Final Complete 03/28/25 11:43 Voided Urine Urine Culture - Preliminary Resulted 03/27/25 23:08 Blood Blood Culture - Preliminary Resulted Assessment Impression: Diabetic ketoacidosis, improved Urinary tract infection Hypertension Metabolic acidosis, resolving Obesity BMI 31.5 Plan: Supplemental oxygen PRN Titrate to keep O2 sats above 92%. Chest x-ray shows cardiomegaly. No pleural effusion or pneumothorax. Continue antibiotics Blood pressure control Accu-Cheks, ISS. Monitor renal function. Monitor electrolytes. Supplement as necessary. Monitor ins and outs. DVT prophylaxis. Prognosis: Poor given patient's multiple co-morbidities. Rest of plan per hospitalist and other consultants. Thank you, Dr. Burleson, for allowing me to participate in this patient's care. Further recommendations will depend on the patient's clinical course. Please do not hesitate to contact me if you have any questions or concerns. This medical document was created using an electronic medical record system with [employer] dictation system. Although these documentations are being carefully reviewed, there may still be some phonetic and typographical changes. The errors are purely typographical, due to imperfection on the software program, and do not reflect any compromise in the patient's medical care. Plan discussed with: Patient, Other (JOS Faith/Dr. Burleson) VILMA COX MD Mar 29, 2025 18:30
[2025-03-29 18:31] LABS: Erythrocyte Sedimentation Rate 110 mm/hr (0-20)
--- NOTE | 2025-03-29 19:13 | DVH ---
EXAM: XY CHEST PORTABLE TECHNIQUE: Single frontal chest radiograph CLINICAL HISTORY: Cough COMPARISON: XY CHEST PORTABLE on DOS: 03/27/25 Findings/Impression: Frontal chest radiograph demonstrates no acute osseous or superficial soft tissue abnormalities. The trachea is midline. Cardiomegaly. No pneumothorax, pleural effusions, or consolidations.
[2025-03-29] MEDS: CROTALIDAE POLYVALENT IMM F VIAL INJ IV ONE (19:20)
[2025-03-30] VITALS (23 sets, daily range): BP systolic 109–174; BP diastolic 60–89; PULSE 69–94; RESP 10–22; TEMP 98.5–99; O2SAT 89–98
[2025-03-30] MEDS: KETOROLAC TROMETH 30 MG/ML 1ML VIAL IV ONE (00:18)
[2025-03-30 05:14] LABS: Alanine Aminotransferase 31 U/L (7-40); Albumin 3.6 g/dL (3.2-4.8); Alkaline Phosphatase 113 U/L (46-116); Anion Gap 10 (5-15); Aspartate Aminotransferase 24 U/L (13-40); BUN/Creatinine Ratio 32.8 (10.0-20.0); Blood Urea Nitrogen 21 mg/dL (9-23); Carbon Dioxide 24 mmol/L (20-31); Sodium 144 mmol/L (136-145); Total Protein 6.1 g/dL (5.7-8.2)
[2025-03-30 05:15] LABS: Bilirubin, Total 0.4 mg/dL (0.2-1.0)
[2025-03-30 05:28] LABS: Calcium 10.6 mg/dL (8.7-10.4); Chloride 110 mmol/L (98-107); Glucose 129 mg/dL (74-106); Potassium 3.5 mmol/L (3.5-5.1)
--- NOTE | 2025-03-30 11:26 | DVH ---
CLINICAL INFORMATION: Cholelithiasis and dilated common bile duct. TECHNIQUE: Multisequence multiplanar MRI images of the abdomen were obtained without IV contrast. Triston wisdom T2-weighted MRCP images were obtained. 3D MRCP images were created. COMPARISON: Ultrasound dated 03/28/2025. FINDINGS: T2 hypointense gallstone at the gallbladder neck measures up to 2.3 cm. Gallbladder is mild ly distended. Common bile duct measures up to 5 mm in diameter, within normal limits. No filling defe ct or stricture identified in the common bile duct on MRCP images. Pancreatic duct appears unremarkab le. No intrahepatic biliary ductal dilatation. There is a moderate left subcapsular collection measuring up to 2.0 x 6.8 x 8.2 cm, likely hematoma. No hydronephrosis. IMPRESSION: 1. No biliary ductal dilatation. No filling defect or stricture identified in the common bile duct M [employer]IVITY THER[employer]Y [employer]IST. 2. Cholelithiasis with mildly distended gallbladder. 3. Moderate-sized left subcapsular collection, likely subcapsular perirenal hematoma. Correlate with clinical findings. If clinically indicated, CT without and with contrast could be obtained to evalua te for associated mass lesion, active bleeding, or vascular lesion. Critical/unexpected findings Critical Result: Left subcapsular perinephric hematoma Findings discussed with the patient's RN, Lilly at 03/30/2025 01:22 PM CDT, and acknowledged receipt a nd understanding of the findings will call the patient's physician regarding the findings. ..
[2025-03-30] MEDS ORDERED: IOHEXOL 300 MG/ML 100ML BOTTLE IJ ONE (12:33)
[2025-03-30] MEDS ORDERED: OMNIPAQUE 12mg/ml 500ml ORAL SOLUTION PO ONE (12:34)
--- NOTE | 2025-03-30 15:39 | DVHPN2 ---
Subjective Pain in the left flank area Reviewed: Care Plan, H&P, Labs, Medications, Previous Orders, Radiology, Other Changes from previous H/P or p: No Changes Gastrointestinal: Nausea, Vomiting, Abdominal Pain Objective Vitals Vital Signs Date Time Temp Pulse Resp B/P (MAP) Pulse Ox O2 Delivery O2 Flow Rate FiO2 03/30/25 14:00 75 19 155/80 (105) 95 03/30/25 13:00 99.0 99.0 03/30/25 08:00 Room Air* 0 21 Intake/Output Intake and Output 03/30/25 07:00 Intake Total 440 ml Balance 440 ml Intake Oral 340 ml IV Total 100 ml # Voids 6 # Bowel Movements 2 General Appearance: Alert, Oriented X3, Cooperative, No acute distress HEENT: Atraumatic Lungs: Clear to auscultation Cardiovascular: Regular rate Abdomen: Normal bowel sounds, Soft, Other (More tenderness in the left flank area) Extremities: Other (Bilateral lower extremity edema) Medications Current Medications Medications Dose Ordered Sig/Sanjeev Route Start Time Stop Time Status Last Admin Dose Admin Acetaminophen 650 mg Q6HP PRN PO 03/28/25 01:30 03/30/25 06:54 650 MG Insulin Glargine 15 units DAILY SC 03/29/25 10:00 03/30/25 10:30 15 UNITS Ondansetron HCl 4 mg Q6HPRN PRN IV 03/28/25 12:00 03/30/25 06:55 4 MG Ceftriaxone Sodium 50 ml @ 100 mls/hr DAILY@09 IV 03/29/25 09:00 03/30/25 09:19 100 MLS/HR Diagnostic Test (Pha) 1 strip ACHS 03/28/25 22:00 03/30/25 12:58 1 STRIP Insulin Human Regular HS SC 03/28/25 22:00 03/29/25 23:00 6 UNITS Insulin Human Regular AC SC 03/29/25 07:00 03/30/25 12:56 6 UNITS Dextrose 50 ml UD PRN IV 03/28/25 20:15 Laboratory Results Laboratory Tests 03/27/25 23:08 03/30/25 04:30 Chemistry Test 03/30/25 04:30 Albumin 3.6 g/dL (3.2-4.8) Calcium Level 10.6 mg/dL (8.7-10.4) H Total Protein 6.1 g/dL (5.7-8.2) LFT Test 03/30/25 04:30 Alanine Aminotransferase (ALT) 31 U/L (7-40) Alkaline Phosphatase 113 U/L (46-116) Aspartate Amino Transferase (AST) 24 U/L (13-40) Total Bilirubin 0.4 mg/dL (0.2-1.0) Urinalysis Test 03/28/25 11:43 Urine Color Light-yellow (Yellow) Urine Clarity Clear (Clear) Urine pH 5.5 (5.0-9.0) Urine Specific [place] 1.032 (1.001-1.035) Urine Protein Trace (Negative) H Urine Ketones 2+ (Negative) H Urine Blood 1+ /uL (Negative) H Urine Nitrite 2+ (Negative) H Urine Bilirubin Negative (Negative) Urine Urobilinogen Normal mg/dL (Negative) Urine Leukocyte Esterase Negative /uL (Negative) Urine RBC 13 /hpf (0 - 4) Urine Microscopic WBC 4 /HPF (0-5) Urine Squamous Epithelial Cells Few /hpf (<5) Urine Bacteria Few /hpf (None Seen) H Urine Yeast (Budding) Few /hpf (None Seen) Urine Glucose 4+ mg/dL (Normal) H Microbiology Microbiology Date/Time Source Procedure Growth Status 03/28/25 23:45 Nose MRSA Screen - Final Complete 03/28/25 11:43 Voided Urine Urine Culture - Final Complete 03/27/25 23:08 Blood Blood Culture - Final Escherichia coli Complete Assessment/Plan Assessment/Plan Left renal subcapsular hematoma per MRCP Bacteremia with Gram-negative satnam/possible sepsis Abdominal pain Mild DKA/resolved UTI Mild dilated common bile duct Cholelithiasis Hypercalcemia Hypertension Dyslipidemia Diabetes Obesity Plan: 03/29/2025: We will repeat calcium. Check PTH. Obtain MRCP. Further plan per orders 03/30/2025: MRCP showing possible left renal subcapsular hematoma. CT scan with and without IV contrast ordered as recommended by radiologist. No choledocholithiasis. Continue Rocephin for the Gram-negative satnam in the blood. Repeat labs. Calcium is better. PTH pending. We will order blood cultures again. We will obtain echocardiogram to rule out vegetation and endocarditis. Further plan per orders Critical care time spent on the case 40 minutes. Plan discussed with: Patient, Other (Nursing) My Orders Orders - KIM,MALU E MD Procedure Category Date Status Time Parathyroid Hormone LAB 03/29/25 In Process Intact 16:26 Chest Portable XY 03/29/25 Resulted 16:28 Mrcp Mri MRI 03/30/25 Resulted 16:25 Ct Ab Pelv W Wo CT 03/30/25 Logged Con-Oral & Iv 11:49 Date of Service: Mar 30, 2025 Billing Provider: MALU ALVAREZ MD Common Visit Codes: [id number] CARE 30-74 MIN MALU ALVAREZ MD Mar 30, 2025 15:39
--- NOTE | 2025-03-30 16:38 | DVH ---
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 During the uneventful, intravenous administration of c ontrast material, multislice data acquisition was obtained through the abdomen and pelvis. The data s et was subsequently reconstructed into axial images. Images were reviewed on a work station using a c ombination of axial and multiplanar using a variety of window levels and settings. Radiation Dose Information: CT Dose: CTDI volume is 14.27 mGy. Dose-length product is 1523.6 mGy*cm FINDINGS: NONCONTRAST STUDY: Lung Bases: No acute or significant lung base finding. Normal heart size. No pleural or pericardial effusion. Liver: The liver is normal in size. No focal lesions. Normal hepatic vascular enhancement. Gallbladder and Biliary Tree: Unremarkable Spleen: Unremarkable Pancreas: The pancreas is normal in appearance without focal lesions or abnormal enhancement. Adrenal Glands: Unremarkable Kidneys: In the periphery of the left kidney is a 6-7 cm curvilinear area of increased tissue density following the contour of the kidney. Tissue density is 62.75 Hounsfield units Bladder: Unremarkable Bowel: The stomach is grossly normal in appearance. Small bowel and colon are normal in caliber and d istribution. The appendix is not visualized; however, no secondary findings of acute appendicitis anthony ntified. Ascites: Absent Lymphadenopathy: No mesenteric, retroperitoneal or periportal lymphadenopathy. Abdominal Wall and Mesentery: Unremarkable. Vasculature: The visualized abdominal aorta is normal in size and caliber. Abdominal and pelvic vess els demonstrate normal enhancement. Pelvic Organs: Unremarkable Musculoskeletal: No aggressive focal bony lesions, acute fractures or dislocation. Soft tissues: Unremarkable. POSTCONTRAST STUDY: Lung Bases: No acute or significant lung base finding. Normal heart size. No pleural or pericardial effusion. Liver: The liver is normal in size. No focal lesions. Normal hepatic vascular enhancement. Gallbladder and Biliary Tree: Unremarkable Spleen: Unremarkable Pancreas: The pancreas is normal in appearance without focal lesions or abnormal enhancement. Adrenal Glands: Unremarkable Kidneys: Following the contour of the left kidney is a crescentic shaped area of decreased attenuatio n compared to the renal cortex with tissue density 62.93 hounsfield units measures 6-7 cm. On the con trast CT of the kidney there appears to be fracture through the RENAL CORTEX into the peripelvic angie on seen on series 5, image 48. VASCULAR COMPROMISE IS QUESTIONABLE. TISSUE DENSITY OF THE UPPER POLE SEGMENT IS 99 HOUNSFIELD UNITS. TISSUE TISSUE DENSITY OF THE RENAL CORTEX IN THE LOWER POLE SEGMENT I S 114 HOUNSFIELD UNITS. Fracture of the left kidney appears to be grade 4. Bladder: Unremarkable Bowel: The stomach is grossly normal in appearance. Small bowel and colon are normal in caliber and d istribution. The appendix is not visualized; however, no secondary findings of acute appendicitis anthony ntified. Ascites: Absent Lymphadenopathy: No mesenteric, retroperitoneal or periportal lymphadenopathy. Abdominal Wall and Mesentery: Unremarkable. Vasculature: The visualized abdominal aorta is normal in size and caliber. Abdominal and pelvic vess els demonstrate normal enhancement. Pelvic Organs: Unremarkable Musculoskeletal: No aggressive focal bony lesions, acute fractures or dislocation. Soft tissues: Unremarkable. IMPRESSION: 1. Findings most consistent with subcapsular hematoma left kidney measuring 6-7 cm. 2. Grade 4 fracture of the renal cortex. 3. No findings to suggest bowel obstruction. 4. All CT scans at this medical facility are performed using dose modulation techniques as appropriat e to a performed exam including the following: Automated exposure control was utilized; adjustment of the MA and/or KV according to patient size; and use of iterative reconstruction technique. CRITICAL FINDINGS Critical Result: Renal trauma with subcapsular hematoma and grade 4 fracture through the cortex Findings discussed with ROCK MCINTOSH at 03/30/2025 04:26 PM, and acknowledged receipt and understand ing of the findings. HS:Y
--- NOTE | 2025-03-30 19:17 | DVHINCON2 ---
Date of service: Mar 30, 2025 Referring Physician Robert Reason for Consultation perirenal hematoma History of Present Illness pt in ICU admitted with abdomeinal and flank pain 3 days ago and found to have left subcapsular renal hematoma on MRI and contrast CT. etioglogy unknown. pt denies any trauma or falls. denies aspirin or blood thinners either prn like exedrine or on prophylactic basis. no hematuria,UTIs or stones Past Medical History reviewed Past Surgical History reviewed Allergies: Coded Allergies: No Known Drug Allergy (Verified Allergy, Unknown, 03/27/25) Current Medications Current Medications Medications (Trade) Dose Ordered Sig/Sanjeev Route PRN Reason Start Time Stop Time Status Last Admin Acetaminophen/ Hydrocodone Bitart ([place] 5/325MG Tab) 1 tab Q6HPRN PRN PO MODERATE PAIN (4-6 PAIN SCALE) 03/30/25 17:00 Acetaminophen/ Hydrocodone Bitart ([place] 10/325MG Tab) 1 tab Q6HP PRN PO SEVERE PAIN (7-10 PAIN SCALE) 03/30/25 17:00 Review of Systems reviewed Vital Signs Vital Signs Date Time Temp Pulse Resp B/P (MAP) Pulse Ox O2 Delivery O2 Flow Rate FiO2 03/30/25 18:00 82 10 156/85 (108) 95 03/30/25 16:00 98.8 98.8 03/30/25 08:00 Room Air* 0 21 Labs/Diagnostic Data Labs Test 03/30/25 17:17 03/30/25 04:30 03/29/25 17:24 03/28/25 11:43 Range/Units POC Glucose 192 H 70-106 mg/dl Sodium Level 144 # 136-145 mmol/L Potassium Level 3.5 3.5-5.1 mmol/L Chloride Level 110 H 98-107 mmol/L Carbon Dioxide Level 24 20-31 mmol/L Anion Gap 10 5-15 Blood Urea Nitrogen 21 9-23 mg/dL Creatinine 0.64 0.550-1.02 mg/dL Glomerular Filtration Rate Calc 107 >90 mL/min BUN/Creatinine Ratio 32.8 H 10.0-20.0 Serum Glucose 129 H 74-106 mg/dL Calcium Level 10.6 H 8.7-10.4 mg/dL Total Bilirubin 0.4 0.2-1.0 mg/dL Aspartate Amino Transferase (AST) 24 13-40 U/L Alanine Aminotransferase (ALT) 31 7-40 U/L Alkaline Phosphatase 113 46-116 U/L Total Protein 6.1 5.7-8.2 g/dL Albumin 3.6 3.2-4.8 g/dL Erythrocyte Sedimentation Rate 110 H 0-20 mm/hr Urine Color Light-yellow Yellow Urine Clarity Clear Clear Urine pH 5.5 5.0-9.0 Urine Specific [place] 1.032 1.001-1.035 Urine Protein Trace H Negative Urine Ketones 2+ H Negative Urine Blood 1+ H Negative /uL Urine Nitrite 2+ H Negative Urine Bilirubin Negative Negative Urine Urobilinogen Normal Negative mg/dL Urine Leukocyte Esterase Negative Negative /uL Urine RBC 13 0 - 4 /hpf Urine Microscopic WBC 4 0-5 /HPF Urine Squamous Epithelial Cells Few <5 /hpf Urine Bacteria Few H None Seen /hpf Urine Yeast ([place]) Few None Seen /hpf Urine Glucose 4+ H Normal mg/dL Urine Opiates Screen Neg NEGATIVE Urine Fentanyl Screen Neg NEGATIVE Urine Barbiturates Screen Neg NEGATIVE Urine Phencyclidine Screen Neg NEGATIVE Urine Amphetamines Screen Neg NEGATIVE Urine Benzodiazepines Screen Neg NEGATIVE Urine Cocaine Screen Neg NEGATIVE Urine Cannabinoids Screen Neg NEGATIVE Test 03/28/25 01:30 03/28/25 01:00 03/27/25 23:08 03/27/25 00:00 Range/Units Lactic Acid Level 2.8 *H 0.4-2.0 mmol/L Troponin I High Sensitivity < 3 L </=34 ng/L Blood Gas Specimen Type Arterial Blood Gas Sample Site Right radial Blood Gas Patient Temperature 37.0 Arterial Blood Date Drawn [id number] Arterial Blood pH 7.356 7.350-7.450 Arterial Blood Partial Pressure CO2 26.0 L 32.0-45.0 mmHg Arterial Blood Partial Pressure O2 72.2 L 83.0-108.0 mmHg Arterial Blood HCO3 14.2 L 21.0-28.0 mmol/L Arterial Blood Oxygen Saturation 93.7 L 94.0-98.0 % Arterial Blood Base Excess -9.6 L -2.0-3.0 mmol/L Arterial Blood Oxyhemoglobin 92.6 L 94.0-98.0 % Arterial Blood Carboxyhemoglobin 0.8 0.5-1.5 % Arterial Blood Methemoglobin 0.4 0.0-1.5 % Denzel Test Yes Blood Gas Total Hemoglobin 13.30 12.0-16.0 g/dL Blood Gas Modality Room air FiO2 % 21.0 White Blood Count 5.5 4.4-10.8 10^3/uL Red Blood Count 4.56 4.0-5.20 10^6/uL Hemoglobin 13.6 12.2-16.2 g/dL Hematocrit 40.8 36.0-46.0 % Mean Corpuscular Volume 89.5 80.0-100.0 fL Mean Corpuscular Hemoglobin 29.8 28.0-32.0 pg Mean Corpuscular Hemoglobin Concent 33.3 32.0-36.0 g/dL Red Cell Distribution Width 13.9 11.8-14.3 % Platelet Count 170 140-450 10^3/uL Mean Platelet Volume 10.5 6.9-10.8 fL Neutrophils (%) (Auto) 87.0 H 37.0-80.0 % Lymphocytes (%) (Auto) 6.9 L 10.0-50.0 % Monocytes (%) (Auto) 5.6 0.0-12.0 % Eosinophils (%) (Auto) 0.2 0.0-7.0 % Basophils (%) (Auto) 0.3 0.0-2.0 % Neutrophils # (Auto) 4.8 1.6-8.6 10 ^3/uL Lymphocytes # (Auto) 0.4 0.4-5.4 10 ^3/uL Monocytes # (Auto) 0.3 0-1.3 10 ^3/uL Eosinophils # (Auto) 0 0-0.8 10 ^3/uL Basophils # (Auto) 0 0-0.2 10 ^3/uL Nucleated Red Blood Cells 0.1 % Hemoglobin A1c 11.6 H <5.7 % A1C Magnesium Level 1.9 1.6-2.6 mg/dL Beta-Hydroxybutyric Acid 2.606 H < 0.4 mmol/L Influenza Type A Antigen Negative Negative Influenza Type B Antigen Negative Negative SARS-CoV-2 Antigen (Rapid) Negative NEGATIVE Microbiology Date/Time Source Procedure Growth Status 03/28/25 23:45 Nose MRSA Screen - Final Complete 03/28/25 11:43 Voided Urine Urine Culture - Final Complete 03/27/25 23:08 Blood Blood Culture - Final Escherichia coli Complete Assessment left subcapsular hematoma etiology unknown; Plan/Recommendation cont on bedrest next 48 hours. repeat Hgb Plan discussed with: Patient, Spouse HUNTER LLYE MD Mar 30, 2025 19:17
--- NOTE | 2025-03-30 19:41 | DVHPN2 ---
Progress Note - Dictate Date Seen: Mar 30, 2025 Has the PT tested + for MRSA If YES, has PT been informed?: No Medical Necessity Reason Pt with a Central, PICC or Fol: No Subjective Patient seen and examined at bedside. Breathing comfortably on room air. Overnight events reviewed. vital signs Vital Sign Date Time Temp Pulse Resp B/P (MAP) Pulse Ox O2 Delivery O2 Flow Rate FiO2 03/30/25 18:00 82 10 156/85 (108) 95 03/30/25 16:00 98.8 98.8 03/30/25 08:00 Room Air* 0 21 Total Intake and Output 03/29/25 03/29/25 03/30/25 15:00 23:00 07:00 Intake Total 100 ml 240 ml 100 ml Balance 100 ml 240 ml 100 ml medications Current Medications Medications Dose Ordered Sig/Sanjeev Route Start Time Stop Time Status Last Admin Dose Admin Acetaminophen 650 mg Q6HP PRN PO 03/28/25 01:30 03/30/25 06:54 650 MG Insulin Glargine 15 units DAILY SC 03/29/25 10:00 03/30/25 10:30 15 UNITS Ondansetron HCl 4 mg Q6HPRN PRN IV 03/28/25 12:00 03/30/25 16:11 4 MG Ceftriaxone Sodium 50 ml @ 100 mls/hr DAILY@09 IV 03/29/25 09:00 03/30/25 09:19 100 MLS/HR Diagnostic Test (Pha) 1 strip ACHS 03/28/25 22:00 03/30/25 17:19 1 STRIP Insulin Human Regular HS SC 03/28/25 22:00 03/29/25 23:00 6 UNITS Insulin Human Regular AC SC 03/29/25 07:00 03/30/25 17:22 3 UNITS Dextrose 50 ml UD PRN IV 03/28/25 20:15 Acetaminophen/ Hydrocodone Bitart 1 tab Q6HPRN PRN PO 03/30/25 17:00 Acetaminophen/ Hydrocodone Bitart 1 tab Q6HP PRN PO 03/30/25 17:00 objective Gen.: Patient lying in bed in no apparent distress. Breathing on room air. Head: Normocephalic, atraumatic. Eyes: EOMI/PERRLA. Ears: Normal hearing. Normal anatomy. Neck/trachea: Trachea midline, supple. Nose: Normal external anatomy. Mouth: Moist mucous membranes. Chest: Decreased air entry bilaterally. No wheezing or rhonchi. Cardiovascular: Positive S1, positive S2. Regular rate and rhythm. Abdomen: Positive bowel sounds in all 4 quadrants. Soft, non-tender, non- distended. : Deferred. Rectal: Deferred. Skin: Warm, dry. Intact. Extremities: 2+ radial pulses bilaterally. No lower extremity edema. Neuro: Awake, alert, oriented x3. No gross motor or sensory deficits. Cranial nerves II through XII intact. Gait not assessed. laboratory and microbiology Laboratory Tests 03/30/25 04:30 03/27/25 23:08 Test 03/30/25 04:30 Range/Units Serum Glucose 129 H 74-106 mg/dL Assessment/Plan Impression: Diabetic ketoacidosis, improved Urinary tract infection Hypertension Metabolic acidosis, resolving Events: Breathing on room air Supplemental oxygen PRN S/p MRCP - findings c/w cholelithiasis; left subcapsular perinephric hematoma. Follow up GI recommendations Plan for abdominal CT. Accu-Cheks, ISS. Blood pressure control Continue antibiotics Labs and imaging reviewed. Rest of plan as noted below. Plan: Supplemental oxygen PRN Titrate to keep O2 sats above 92%. Chest x-ray showed cardiomegaly. No pleural effusion or pneumothorax. Continue antibiotics Blood pressure control Accu-Cheks, ISS. Monitor renal function. Monitor electrolytes. Supplement as necessary. Monitor ins and outs. DVT prophylaxis. Prognosis: Poor given patient's multiple co-morbidities. Rest of plan per hospitalist and other consultants. Thank you, Dr. Burleson, for allowing me to participate in this patient's care. Further recommendations will depend on the patient's clinical course. Please do not hesitate to contact me if you have any questions or concerns. This medical document was created using an electronic medical record system with [employer] dictation system. Although these documentations are being carefully reviewed, there may still be some phonetic and typographical changes. The errors are purely typographical, due to imperfection on the software program, and do not reflect any compromise in the patient's medical care. Dietary Evaluation Review Recommendations by RD: Dietary education by RD Comments: 1) Encourage optimal PO intake. Offer Zofran before meals. If appetite does not improve, consider Glucerna bid 2) Review the importance of SMBG - if patient is d/c on insulin regimen, consider ordering CGM 3) Refer to outpatient RD/CDCES for diabetes education and weight management 4) Follow-up with cardiology 5) Continue to monitor I&O, labs, and skin integrity Expected Outcomes/Goals: 1) appetite and labs to improve 2) GI symptoms to improve 3) f/u in 3-5 days Plan discussed with: Patient, Other (JOS Carr) VILMA COX MD Mar 30, 2025 19:41
[2025-03-30] MEDS: HYDROcodone-ACET 5/325MG TAB PO PRN (20:08)
--- NOTE | 2025-03-30 20:59 | DVHSR ---
APPROVED REPORT EXAM: Two-dimensional and M-mode echocardiogram with Doppler and color Doppler. Blood Pressure: 155/80 mmHg INDICATION Rule out vegetation/endocarditis RISK FACTORS Height: 5'1", Weight: 166 DIMENSIONS LVDd (3.8-5.7cm)LA (2D)3.3 (1.9-4.0cm)Aortic Root3.5 (2.0-3.7cm) LVDs (2.5-4.0cm)LA (MM) (1.9-4.0cm)Aortic Cusp Exc1.5 (1.5-2.0cm) EF (%) 58.0 (55-70%)Rt. Atrium2.8 (1.9-4.0cm)Asc. Aorta cm Mitral Valve MitralMitral Stenosis E wave0.93m/sMV Mean GR.mmHg A wave0.88m/sMV Peak GR.mmHg E/A ratio1.12D MVAcm2 DECEL [id number] 1/2 Timems Aortic Valve Aortic ValveAortic Stenosis V11.03m/Gale Mean GR.5mmHg V21.68m/Gale Peak GR.11mmHg LVOT Diameter1.7 (1.8-2.4cm)Doppler AVA1.39cm2 Tricuspid Valve TR Velocity2.59m/s [id number] Other Information Quality : LimitedRhythm : Technically limited study due to body habitus. Conclusion LV EF IS 65% MILD LVH AND MILD LV DIASTOLIC DYSFUNCTION AORTIC SCLEROSIS NORMAL MV,TV AND PV NO EFFUSION
[2025-03-31] VITALS (25 sets, daily range): BP systolic 101–164; BP diastolic 56–96; PULSE 67–99; RESP 10–21; TEMP 98–99.5; O2SAT 87–99
--- NOTE | 2025-03-31 01:00 | DVH ---
BILATERAL RENAL ULTRASOUND CLINICAL HISTORY: LEFT KIDNEY HEMATOMA COMPARISON: CT 03/30/2025. TECHNIQUE: High-resolution real-time grayscale and color flow imaging is performed. FINDINGS: Right kidney: Measures 12.6 cm in length. Normal cortical thickness and echogenicity. No hydronephr osis. Left kidney: Measures 12.4 cm in length. Heterogeneous subcapsular collection is again noted. This me asures approximately 10 cm in length and 3 cm in thickness. This is better evaluated on the recent CT . No hydronephrosis. Bladder: Appears grossly normal in contour. Prevoid volume 455 mL. IMPRESSION: Heterogeneous left renal subcapsular collection as above. No hydronephrosis.
[2025-03-31 06:07] LABS: Basophils # (auto) 0 10 ^3/uL (0-0.2); Basophils % (auto) 0.5 % (0.0-2.0); Eosinophils # (auto) 0.1 10 ^3/uL (0-0.8); Eosinophils % (auto) 1.3 % (0.0-7.0); Hematocrit 32.1 % (36.0-46.0); Lymphocytes # (auto) 1.6 10 ^3/uL (0.4-5.4); Lymphocytes % (auto) 18.3 % (10.0-50.0); Mean Corpuscular Hemoglobin 29.9 pg (28.0-32.0); Mean Corpuscular Hgb Conc. 34.1 g/dL (32.0-36.0); Mean Corpuscular Volume 87.7 fL (80.0-100.0); Monocytes # (auto) 1.2 10 ^3/uL (0-1.3); Monocytes % (auto) 13.5 % (0.0-12.0); Neutrophils % (auto) 66.4 % (37.0-80.0); Nucleated Red Blood Cells % 0.3 %; Platelet Count (auto) 237 10^3/uL (140-450); Red Blood Cells 3.67 10^6/uL (4.0-5.20); Red Cell Distribution Width 13.8 % (11.8-14.3)
[2025-03-31 06:34] LABS: Alanine Aminotransferase 20 U/L (7-40); Albumin 3.6 g/dL (3.2-4.8); Alkaline Phosphatase 112 U/L (46-116); Anion Gap 10 (5-15); Aspartate Aminotransferase 14 U/L (13-40); BUN/Creatinine Ratio 24.1 (10.0-20.0); Bilirubin, Total 0.4 mg/dL (0.2-1.0); Blood Urea Nitrogen 13 mg/dL (9-23); Calcium 10.3 mg/dL (8.7-10.4); Carbon Dioxide 23 mmol/L (20-31); Sodium 142 mmol/L (136-145); Total Protein 6.1 g/dL (5.7-8.2)
[2025-03-31 06:38] LABS: Chloride 109 mmol/L (98-107); Glucose 146 mg/dL (74-106); Potassium 3.5 mmol/L (3.5-5.1)
[2025-03-31 07:07] LABS: Erythrocyte Sedimentation Rate 106 mm/hr (0-20)
--- NOTE | 2025-03-31 09:10 | DVHINCON2 ---
Date of service: Mar 31, [address] Maria Reason for Consultation Subcapsular hematoma History of Present Illness History Source: Patient, RN Notes, MD Notes, Old Records Exam Limitations: No limitations HPI 50 yo female with hx of DMII, HTN, and HLD presented with abdominal pain associated with n/v, chills and headache. Patient was seen over the weekend by Dr. Maria urologist who was denial resolution specialist. She continues to be admitted in the [facility] being treated for DKA, E Coli Bacteremia, and spontaneous grade 4 left renal injury with subcapsular hematoma. She has ongoing abdominal pain. H/H is stable at this time. She has not required transfusion thus far. Renal function is preserved. Past Medical History Cardiac: HTN Endocrine: NIDDM Smoker: No Hx (Negative) Alocohol: None Drugs: None Domestic Violence: Neg Review of Systems Gastrointestinal: Abdominal Pain H&P Exam Vital Signs Vital Signs Date Time Temp Pulse Resp B/P (MAP) Pulse Ox O2 Delivery O2 Flow Rate FiO2 03/31/25 07:00 67 14 101/66 (78) 98 03/30/25 20:00 Room Air* 0 21 03/30/25 16:00 98.8 98.8 General Appeara: Well developed, Well nourished, Normal Appearance Neuro/Mental St: Alert, Oriented Appearance: Appropriate appearance, Appropriate insight Eye contact/ Speech: Cooperative, Good eye contact, Normal speech Skin Exam: Normal inspection, Normal color, Warm/dry Labs/Xrays [place] [address] Ph: [phone] DIAGNOSTIC IMAGING Diagnostic Imaging Report : [id number] Signed PATIENT: TUNDE ESTEVESCT: [id number] UNIT: [id number] : 1975 LOC: [facility] IN ICU ROOM / BED: [facility] / A AGE / SEX: 50 / F ADM STATUS: ADM IN SERVICE 1149 ORDERING PHYSICIAN: MALU ALVAREZ MD PROCEDURE(s): ABPELC - CT AB PELV W WO CON-ORAL & IV REASON: MASS ON LEFT KIDNEY ORDER NUMBER(s): [id number], ACCESSION NUMBER(s): [id number] Exam: CT CT AB PELV W WO CON-ORAL IV History: MASS ON LEFT KIDNEY Comparison Study: None Contrast: Type of contrast: Omnipaque 300 Contrast injected: 100 mL Contrast wasted: 0 TECHNIQUE: A digital sample builder image was obtained. During the uneventful, intravenous administration of contrast material, multislice data acquisition was obtained through the abdomen and pelvis. The data set was subsequently reconstructed into axial images. Images were reviewed on a work station using a combination of axial and multiplanar using a variety of window levels and settings. Radiation Dose Information: CT Dose: CTDI volume is 14.27 mGy. Dose-length product is 1523.6 mGy*cm FINDINGS: NONCONTRAST STUDY: Lung Bases: No acute or significant lung base finding. Normal heart size. No pleural or pericardial effusion. Liver: The liver is normal in size. No focal lesions. Normal hepatic vascular enhancement. Gallbladder and Biliary Tree: Unremarkable Spleen: Unremarkable Pancreas: The pancreas is normal in appearance without focal lesions or abnormal enhancement. Adrenal Glands: Unremarkable Kidneys: In the periphery of the left kidney is a 6-7 cm curvilinear area of increased tissue density following the contour of the kidney. Tissue density is 62.75 Hounsfield units Bladder: Unremarkable Bowel: The stomach is grossly normal in appearance. Small bowel and colon are normal in caliber and distribution. The appendix is not visualized; however, no secondary findings of acute appendicitis identified. Ascites: Absent Lymphadenopathy: No mesenteric, retroperitoneal or periportal lymphadenopathy. Abdominal Wall and Mesentery: Unremarkable. Vasculature: The visualized abdominal aorta is normal in size and caliber. Abdominal and pelvic vessels demonstrate normal enhancement. Pelvic Organs: Unremarkable Musculoskeletal: No aggressive focal bony lesions, acute fractures or dislocation. Soft tissues: Unremarkable. POSTCONTRAST STUDY: Lung Bases: No acute or significant lung base finding. Normal heart size. No pleural or pericardial effusion. Liver: The liver is normal in size. No focal lesions. Normal hepatic vascular enhancement. Gallbladder and Biliary Tree: Unremarkable Spleen: Unremarkable Pancreas: The pancreas is normal in appearance without focal lesions or abnormal enhancement. Adrenal Glands: Unremarkable Kidneys: Following the contour of the left kidney is a crescentic shaped area of decreased attenuation compared to the renal cortex with tissue density 62.93 hounsfield units measures 6-7 cm. On the contrast CT of the kidney there appears to be fracture through the RENAL CORTEX into the peripelvic region seen on series 5, image 48. VASCULAR COMPROMISE IS QUESTIONABLE. TISSUE DENSITY OF THE UPPER POLE SEGMENT IS 99 HOUNSFIELD UNITS. TISSUE TISSUE DENSITY OF THE RENAL CORTEX IN THE LOWER POLE SEGMENT IS 114 HOUNSFIELD UNITS. Fracture of the left kidney appears to be grade 4. Bladder: Unremarkable Bowel: The stomach is grossly normal in appearance. Small bowel and colon are normal in caliber and distribution. The appendix is not visualized; however, no secondary findings of acute appendicitis identified. Ascites: Absent Lymphadenopathy: No mesenteric, retroperitoneal or periportal lymphadenopathy. Abdominal Wall and Mesentery: Unremarkable. Vasculature: The visualized abdominal aorta is normal in size and caliber. Abdominal and pelvic vessels demonstrate normal enhancement. Pelvic Organs: Unremarkable Musculoskeletal: No aggressive focal bony lesions, acute fractures or dislocation. Soft tissues: Unremarkable. IMPRESSION: 1. Findings most consistent with subcapsular hematoma left kidney measuring 6-7 cm. 2. Grade 4 fracture of the renal cortex. 3. No findings to suggest bowel obstruction. 4. All CT scans at this medical facility are performed using dose modulation techniques as appropriate to a performed exam including the following: Automated exposure control was utilized; adjustment of the MA and/or KV according to patient size; and use of iterative reconstruction technique. CRITICAL FINDINGS Critical Result: Renal trauma with subcapsular hematoma and grade 4 fracture through the cortex Findings discussed with ROCK MCINTOSH at 03/30/2025 04:26 PM, and acknowledged receipt and understanding of the findings. HS:Y ATED BY: ANTOINETTE JOEL Jr., DO DICTATED DATE/TIME: 03/30/251634 SIGNED BY: ANTOINETTE JOEL Jr., SIGNED DATE/TIME: 03/30/25 163 CC: [place] [address] Ph: [phone] DIAGNOSTIC IMAGING Diagnostic Imaging Report : [id number] Signed PATIENT: TUNDE ESTEVESCT: [id number] UNIT: [id number] : 1975 LOC: [facility] IN ICU ROOM / BED: 0262D / A AGE / SEX: 50 / F ADM STATUS: ADM IN SERVICE 0700 ORDERING PHYSICIAN: MALU ALVAREZ MD PROCEDURE(s): KIDUS - KIDNEY REASON: LEFT KIDNEY HEMATOMA ORDER NUMBER(s): [id number], ACCESSION NUMBER(s): [id number] BILATERAL RENAL ULTRASOUND CLINICAL HISTORY: LEFT KIDNEY HEMATOMA COMPARISON: CT 03/30/2025. TECHNIQUE: High-resolution real-time grayscale and color flow imaging is performed. FINDINGS: Right kidney: Measures 12.6 cm in length. Normal cortical thickness and echogenicity. No hydronephrosis. Left kidney: Measures 12.4 cm in length. Heterogeneous subcapsular collection is again noted. This measures approximately 10 cm in length and 3 cm in thickness. This is better evaluated on the recent CT. No hydronephrosis. Bladder: Appears grossly normal in contour. Prevoid volume 455 mL. IMPRESSION: Heterogeneous left renal subcapsular collection as above. No hydronephrosis. ATED BY: KIRILL PATEL MD DICTATED DATE/TIME: 03/31/2557 SIGNED BY: KIRILL PATEL MD SIGNED DATE/TIME: 03/31/2557 CC: Labs Test 03/31/25 05:45 03/31/25 05:18 03/29/25 17:24 03/28/25 11:43 Range/Units POC Glucose 154 H 70-106 mg/dl White Blood Count 9.0 # 4.4-10.8 10^3/uL Red Blood Count 3.67 L 4.0-5.20 10^6/uL Hemoglobin 11.0 #L 12.2-16.2 g/dL Hematocrit 32.1 #L 36.0-46.0 % Mean Corpuscular Volume 87.7 80.0-100.0 fL Mean Corpuscular Hemoglobin 29.9 28.0-32.0 pg Mean Corpuscular Hemoglobin Concent 34.1 32.0-36.0 g/dL Red Cell Distribution Width 13.8 11.8-14.3 % Platelet Count 237 140-450 10^3/uL Mean Platelet Volume 9.4 6.9-10.8 fL Neutrophils (%) (Auto) 66.4 37.0-80.0 % Lymphocytes (%) (Auto) 18.3 10.0-50.0 % Monocytes (%) (Auto) 13.5 H 0.0-12.0 % Eosinophils (%) (Auto) 1.3 0.0-7.0 % Basophils (%) (Auto) 0.5 0.0-2.0 % Neutrophils # (Auto) 6.0 1.6-8.6 10 ^3/uL Lymphocytes # (Auto) 1.6 0.4-5.4 10 ^3/uL Monocytes # (Auto) 1.2 0-1.3 10 ^3/uL Eosinophils # (Auto) 0.1 0-0.8 10 ^3/uL Basophils # (Auto) 0 0-0.2 10 ^3/uL Nucleated Red Blood Cells 0.3 % Erythrocyte Sedimentation Rate 106 H 0-20 mm/hr Sodium Level 142 136-145 mmol/L Potassium Level 3.5 3.5-5.1 mmol/L Chloride Level 109 H 98-107 mmol/L Carbon Dioxide Level 23 20-31 mmol/L Anion Gap 10 5-15 Blood Urea Nitrogen 13 9-23 mg/dL Creatinine 0.54 L 0.550-1.02 mg/dL Glomerular Filtration Rate Calc 111 >90 mL/min BUN/Creatinine Ratio 24.1 H 10.0-20.0 Serum Glucose 146 H 74-106 mg/dL Calcium Level 10.3 8.7-10.4 mg/dL Total Bilirubin 0.4 0.2-1.0 mg/dL Aspartate Amino Transferase (AST) 14 13-40 U/L Alanine Aminotransferase (ALT) 20 7-40 U/L Alkaline Phosphatase 112 46-116 U/L Total Protein 6.1 5.7-8.2 g/dL Albumin 3.6 3.2-4.8 g/dL Urine Color Light-yellow Yellow Urine Clarity Clear Clear Urine pH 5.5 5.0-9.0 Urine Specific [place] 1.032 1.001-1.035 Urine Protein Trace H Negative Urine Ketones 2+ H Negative Urine Blood 1+ H Negative /uL Urine Nitrite 2+ H Negative Urine Bilirubin Negative Negative Urine Urobilinogen Normal Negative mg/dL Urine Leukocyte Esterase Negative Negative /uL Urine RBC 13 0 - 4 /hpf Urine Microscopic WBC 4 0-5 /HPF Urine Squamous Epithelial Cells Few <5 /hpf Urine Bacteria Few H None Seen /hpf Urine Yeast (Budding) Few None Seen /hpf Urine Glucose 4+ H Normal mg/dL Urine Opiates Screen Neg NEGATIVE Urine Fentanyl Screen Neg NEGATIVE Urine Barbiturates Screen Neg NEGATIVE Urine Phencyclidine Screen Neg NEGATIVE Urine Amphetamines Screen Neg NEGATIVE Urine Benzodiazepines Screen Neg NEGATIVE Urine Cocaine Screen Neg NEGATIVE Urine Cannabinoids Screen Neg NEGATIVE Test 03/28/25 01:30 03/28/25 01:00 03/27/25 23:08 03/27/25 00:00 Range/Units Lactic Acid Level 2.8 *H 0.4-2.0 mmol/L Troponin I High Sensitivity < 3 L </=34 ng/L Blood Gas Specimen Type Arterial Blood Gas Sample Site Right radial Blood Gas Patient Temperature 37.0 Arterial Blood Date Drawn [id number] Arterial Blood pH 7.356 7.350-7.450 Arterial Blood Partial Pressure CO2 26.0 L 32.0-45.0 mmHg Arterial Blood Partial Pressure O2 72.2 L 83.0-108.0 mmHg Arterial Blood HCO3 14.2 L 21.0-28.0 mmol/L Arterial Blood Oxygen Saturation 93.7 L 94.0-98.0 % Arterial Blood Base Excess -9.6 L -2.0-3.0 mmol/L Arterial Blood Oxyhemoglobin 92.6 L 94.0-98.0 % Arterial Blood Carboxyhemoglobin 0.8 0.5-1.5 % Arterial Blood Methemoglobin 0.4 0.0-1.5 % Denzel Test Yes Blood Gas Total Hemoglobin 13.30 12.0-16.0 g/dL Blood Gas Modality Room air FiO2 % 21.0 Hemoglobin A1c 11.6 H <5.7 % A1C Magnesium Level 1.9 1.6-2.6 mg/dL Beta-Hydroxybutyric Acid 2.606 H < 0.4 mmol/L Influenza Type A Antigen Negative Negative Influenza Type B Antigen Negative Negative SARS-CoV-2 Antigen (Rapid) Negative NEGATIVE Microbiology Date/Time Source Procedure Growth Status 03/28/25 23:45 Nose MRSA Screen - Final Complete 03/28/25 11:43 Voided Urine Urine Culture - Final Complete 03/27/25 23:08 Blood Blood Culture - Final Escherichia coli Complete Assessment/Plan Problem List: (1) DKA (diabetic ketoacidosis) (2) E coli bacteremia (3) Retroperitoneal hematoma (4) Sepsis Plan grade 4 renal injury with subcapsular hematoma - stable - no s/s of worsening E coli bacteremia - improving clinically on IV abx Plan: Continue bedrest x 10 days monitor H/H daily repeat CT if clinically worsening Plan discussed with: Patient, Other DORA ROMAN NP Mar 31, 2025 09:10
[2025-03-31] MEDS: HYDROcodone-ACET 10/325MG TAB PO PRN (10:04)
--- NOTE | 2025-03-31 16:42 | DVHPNRES ---
Progress Note Date Seen: Mar 31, 2025 Resident Creating Document: ROCK MCINTOSH RESIDENT Has the PT tested + for MRSA If YES, has PT been informed?: No Medical Necessity Reason Pt with a Central, PICC or Fol: No Medical Necessity Reason Patient is a 50 year female and admitted on 03/28/2025 due to DKA. Patient seen and examined today.She is out of DKA. Blood sugar this AM was 154. She is currently on Insulin 15unit lantus sc daily and ceftriaxone for the bacteremia. Patient is doing much better. However, she continue to complained of left flank pain. CT abdomen revealed subcapsular hematoma left kidney measuring 6-7 cm. MRCP showed No biliary ductal dilatation. No filling defect or stricture identified in the common bile duct MRCP but multiple Cholelithiasis with mildly distended gallbladder and Moderate-sized left subcapsular collection, likely subcapsular perirenal hematoma. Correlate with clinical findings. If clinically indicated, CT without and with contrast could be obtained to evaluate for associated mass lesion, active bleeding, or vascular lesion. ON Renal US, dimensions were approximately 10 cm in length and 3 cm in thickness. Urology on the case and recommended absolute bedrest. however, the the size be getting larger, CT abdomen be repeated. I Will repeat CT abdomen. Also given patient is stable from icu stand point, will downgrade to telemetry. Subjective Review of Systems Constitutional: Denies fever, No more chills HEENT: Denies headache, ear pain, ear discharges, conjunctivitis, nasal discharge throat pain Cardiovascular: Denies chest pain, palpitation, orthopnea, PND, or pedal edema Respiratory: Denies shortness of breath, cough cough, sputum production, hemoptysis, GI: denies nausea, vomiting, diarrhea, hematemesis, hematochezia, :lower abdominal pain with radiation to the left flank; HEMATOMA NOTED ON CT abdomen. Denies frequency, urgency, hematuria, Endocrine: Denies unintentional weight gain or weight loss, feeling of hot flashes, Jason: Denies easy bruising, bleeding disorders, epistaxis Musculoskeletal: Denies joint pains, muscle aches Psych: No evidence of depression, adeola, suicidal ideation Objective vital signs Vital Sign Date Time Temp Pulse Resp B/P (MAP) Pulse Ox O2 Delivery O2 Flow Rate FiO2 03/31/25 15:00 79 19 133/78 (96) 98 03/31/25 12:01 98.0 98.0 03/31/25 08:00 Nasal Cannula* 1 24 Total Intake and Output 03/30/25 03/30/25 03/31/25 15:00 23:00 07:00 Intake Total 50 ml 600 ml 375 ml Output Total 0 ml Balance 50 ml 600 ml 375 ml medications Current Medications Medications Dose Ordered Sig/Sanjeev Route Start Time Stop Time Status Last Admin Dose Admin Acetaminophen 650 mg Q6HP PRN PO 03/28/25 01:30 03/30/25 06:54 650 MG Insulin Glargine 15 units DAILY SC 03/29/25 10:00 03/31/25 10:30 15 UNITS Ondansetron HCl 4 mg Q6HPRN PRN IV 03/28/25 12:00 03/31/25 03:55 4 MG Ceftriaxone Sodium 50 ml @ 100 mls/hr DAILY@09 IV 03/29/25 09:00 03/31/25 10:03 100 MLS/HR Diagnostic Test (Pha) 1 strip ACHS 03/28/25 22:00 03/31/25 12:02 1 STRIP Insulin Human Regular HS SC 03/28/25 22:00 03/30/25 22:57 6 UNITS Insulin Human Regular AC SC 03/29/25 07:00 03/31/25 12:00 9 UNITS Dextrose 50 ml UD PRN IV 03/28/25 20:15 Acetaminophen/ Hydrocodone Bitart 1 tab Q6HPRN PRN PO 03/30/25 17:00 03/31/25 04:48 1 TAB Acetaminophen/ Hydrocodone Bitart 1 tab Q6HP PRN PO 03/30/25 17:00 03/31/25 10:04 1 TAB Examination General Appearance: Alert, Oriented X3, Cooperative HEENT: Atraumatic, PERRLA, EOMI, Mucous membrane moist/pink Respiratory: Clear to auscultation, Normal air movement Cardiovascular: Regular rate, Normal S1, Normal S2, No murmurs, no chest wall tenderness Abdominal: Large abdomen,left sided tenderness and mas palpated. bowel sounds present, no scars noted Extremities: No clubbing, No cyanosis, No edema, Normal pulses, No tenderness/swelling Skin: No rashes, No breakdown, No significant lesion Neuro: Normal gait, Normal speech, Strength at 5/5 X4 ext, Normal tone, Sensation intact, Cranial nerves 3-12 NL, Reflexes 2+ Psych/Mental Status: Mental status NL, Mood NL laboratory and microbiology Laboratory Tests 03/31/25 05:18 Test 03/31/25 05:18 Range/Units Serum Glucose 146 H 74-106 mg/dL Microbiology Date/Time Source Procedure Growth Status 03/28/25 23:45 Nose MRSA Screen - Final Complete 03/28/25 11:43 Voided Urine Urine Culture - Final Complete 03/27/25 23:08 Blood Blood Culture - Final Escherichia coli Complete Problem List/Assessment/Plan Problem List/Assessment/Plan Assessment/plan Neuro: Alert and oriented Cardiovascular: Hypertension -Continue amlodipine 5mg daily Pulmonary: Metabolic acidosis with almost respiratory compensation - Monitor Spo2 - Monitor respiration - If warranted, GI : Uncomplicated cholelithiasis. Borderline hepatomegaly and hepatic steatosis. Mildly dilated common bile duct nausea - Zofran - Outpatient follow up for elective cholecystectomy : left flank pain, likely pyelonephritis UTI Left subcapsular hematoma. Heterogeneous subcapsular collection is again noted. This measures approximately 10 cm in length and 3 cm in thickness - Ceftriaxone - [place] and Tylenol - repeat CT abdomen, if mass is getting larger, reconsult urology, otherwise discharge home with bedrest for 10 days Metabolic/ Endocrine Acute abdominal tenderness likely due to mild resolving DKA Hgb A1c: 11.5 Early/mild resolving DKA Diabetes Mellitus type II Metabolic: Dyslipidemia Hyponatremia Metabolic acidosis,resolved Monitor electrolytes and replace per protocol Infectious Disease: UTI Bacteremia, E. coli Sepsis due to UTI, POA - Urine culture : mixed growth, likely contamination - Blood culture: E. coli. - Continue Ceftriaxone DIET:Diabetic diet DVT prophylax: Lovenox GI prophylaxis: Protonix Bowel regimen: Code status: Full code LINES/DRAINS/ACCESS: IV access: Peripheral Drips: Insulin Sanchez catheter: None Bed ahuja DISPOSITION: Telemetry Patient's status discussed with patient and Critical care time spent more than 30 minutes. Case discussed with Dr. Palmer Plan discussed with: Other (RN) Plan discussed with: Patient, Other My Orders My Orders Orders - ROCK MCINTOSH Procedure Category Date Status Time Transfer Orders XFER 03/31/25 Transmitted 16:13 Ct Ab Pel Wo Con-No CT 03/31/25 Logged Oral Or Iv 16:13 Dietary Evaluation Review Recommendations by RD: Dietary education by RD Comments: 1) Encourage optimal PO intake. Offer Zofran before meals. If appetite does not improve, consider Glucerna bid 2) Review the importance of SMBG - if patient is d/c on insulin regimen, consider ordering CGM 3) Refer to outpatient RD/CD[facility] for diabetes education and weight management 4) Follow-up with cardiology 5) Continue to monitor I&O, labs, and skin integrity Expected Outcomes/Goals: 1) appetite and labs to improve 2) GI symptoms to improve 3) f/u in 3-5 days ROCK MCINTOSH RESIDENT Mar 31, 2025 16:42
--- NOTE | 2025-03-31 20:03 | DVH ---
EXAM: CT Abdomen and Pelvis Without Intravenous Contrast CLINICAL INDICATION: REASSESS LEFT Subcapsular hematoma TECHNIQUE: Axial computed tomography images of the abdomen and pelvis without intravenous contrast. This CT exam was performed using one or more of the following dose reduction techniques: automated exposure control, adjustment of the mA and/or kV according to patient size, and/or use of iterative r econstruction technique. CONTRAST: RADIATION DOSE: CTDIvol = 16.28 mGy, DLP = 922.67 mGy-cm COMPARISON: CT CT AB PELV W WO CON-ORAL IV on DOS: 03/30/25 FINDINGS: LUNG BASES: Partially visualized COPD. Bibasilar atelectasis or scarring. PLEURAL SPACE: Small bilateral pleural effusions. ABDOMEN: LIVER: Hepatomegaly with fatty infiltration. GALLBLADDER AND BILE DUCTS: Unremarkable. No calcified stones. No ductal dilation. PANCREAS: Unremarkable. No ductal dilation. SPLEEN: Unremarkable. No splenomegaly. ADRENALS: Unremarkable. No mass. KIDNEYS AND URETERS: See below. STOMACH AND BOWEL: Unremarkable. No obstruction. No mucosal thickening. PELVIS: APPENDIX: No findings to suggest acute appendicitis. BLADDER: Unremarkable. No stones. REPRODUCTIVE: Unremarkable as visualized. ABDOMEN and PELVIS: INTRAPERITONEAL SPACE: Unremarkable. No free air. No significant fluid collection. BONES/JOINTS: Persistent subscapular hematoma of the left kidney without significant change from th e prior exam. No acute fracture. No dislocation. SOFT TISSUES: Umbilical hernia containing fat. VASCULATURE: Unremarkable. No abdominal aortic aneurysm. LYMPH NODES: Unremarkable. No enlarged lymph nodes. OTHER FINDINGS: . . . IMPRESSION: 1. Persistent subscapular hematoma of the left kidney without significant change from the prior exam . 2. Hepatomegaly with fatty infiltration. 3. Umbilical hernia containing fat.
[2025-04-01] VITALS (9 sets, daily range): BP systolic 129–155; BP diastolic 76–96; PULSE 73–94; RESP 16–22; TEMP 97.7–98.7; O2SAT 92–99
[2025-04-01 09:08] LABS: Chloride 106 mmol/L (98-107); Potassium 3.6 mmol/L (3.5-5.1); Sodium 140 mmol/L (136-145)
[2025-04-01 09:09] LABS: Anion Gap 9 (5-15); Calcium 10.4 mg/dL (8.7-10.4); Carbon Dioxide 25 mmol/L (20-31)
[2025-04-01 09:14] LABS: BUN/Creatinine Ratio 17.6 (10.0-20.0); Blood Urea Nitrogen 9 mg/dL (9-23)
[2025-04-01 09:16] LABS: Glucose 157 mg/dL (74-106)
[2025-04-01] MEDS ORDERED: ACET-1882 PO (13:31)
--- NOTE | 2025-04-01 13:38 | DVHDSRES ---
Discharge Summary Date of Admission Resident Creating Document: ROCK MCINTOSH Mar 28, 2025 at 01:18 Date of Discharge: Apr 01, 2025 Labs/Diagnostic Data: PATIENT: TUNDE ESTEVESCT: [id number] UNIT: [id number] : 1975 LOC: [facility]AV[facility] IN ICU ROOM / BED: 0262D / A AGE / SEX: 50 / F ADM STATUS: ADM IN SERVICE 1613 ORDERING PHYSICIAN: ROCK MCINTOSH PROCEDURE(s): ABPL - CT AB PEL WO CON-NO ORAL OR IV REASON: REASSESS LEFT Subcapsular hematoma ORDER NUMBER(s): [id number], ACCESSION NUMBER(s): [id number] EXAM: CT Abdomen and Pelvis Without Intravenous Contrast CLINICAL INDICATION: REASSESS LEFT Subcapsular hematoma TECHNIQUE: Axial computed tomography images of the abdomen and pelvis without intravenous contrast. This CT exam was performed using one or more of the following dose reduction techniques: automated exposure control, adjustment of the mA and/or kV according to patient size, and/or use of iterative reconstruction technique. CONTRAST: RADIATION DOSE: CTDIvol = 16.28 mGy, DLP = 922.67 mGy-cm COMPARISON: CT CT AB PELV W WO CON-ORAL IV on DOS: 03/30/25 FINDINGS: LUNG BASES: Partially visualized COPD. Bibasilar atelectasis or scarring. PLEURAL SPACE: Small bilateral pleural effusions. ABDOMEN: LIVER: Hepatomegaly with fatty infiltration. GALLBLADDER AND BILE DUCTS: Unremarkable. No calcified stones. No ductal dilation. PANCREAS: Unremarkable. No ductal dilation. SPLEEN: Unremarkable. No splenomegaly. ADRENALS: Unremarkable. No mass. KIDNEYS AND URETERS: See below. STOMACH AND BOWEL: Unremarkable. No obstruction. No mucosal thickening. PELVIS: APPENDIX: No findings to suggest acute appendicitis. BLADDER: Unremarkable. No stones. REPRODUCTIVE: Unremarkable as visualized. ABDOMEN and PELVIS: INTRAPERITONEAL SPACE: Unremarkable. No free air. No significant fluid collection. BONES/JOINTS: Persistent subscapular hematoma of the left kidney without significant change from the prior exam. No acute fracture. No dislocation. SOFT TISSUES: Umbilical hernia containing fat. VASCULATURE: Unremarkable. No abdominal aortic aneurysm. LYMPH NODES: Unremarkable. No enlarged lymph nodes. OTHER FINDINGS: . . . IMPRESSION: 1. Persistent subscapular hematoma of the left kidney without significant change from the prior exam. 2. Hepatomegaly with fatty infiltration. 3. Umbilical hernia containing fat. ATED BY: DIOGENES BANKS MD DICTATED DATE/TIME: 03/31/252000 PATIENT: TUNDE ESTEVESCT: [id number] UNIT: [id number] : 1975 LOC: [facility]AV[facility] IN ICU ROOM / BED: 0262D / A AGE / SEX: 50 / F ADM STATUS: ADM IN SERVICE 0700 ORDERING PHYSICIAN: MALU ALVAREZ MD PROCEDURE(s): KIDUS - KIDNEY REASON: LEFT KIDNEY HEMATOMA ORDER NUMBER(s): [id number], ACCESSION NUMBER(s): [id number] BILATERAL RENAL ULTRASOUND CLINICAL HISTORY: LEFT KIDNEY HEMATOMA COMPARISON: CT 03/30/2025. TECHNIQUE: High-resolution real-time grayscale and color flow imaging is performed. FINDINGS: Right kidney: Measures 12.6 cm in length. Normal cortical thickness and echogenicity. No hydronephrosis. Left kidney: Measures 12.4 cm in length. Heterogeneous subcapsular collection is again noted. This measures approximately 10 cm in length and 3 cm in thickness. This is better evaluated on the recent CT. No hydronephrosis. Bladder: Appears grossly normal in contour. Prevoid volume 455 mL. IMPRESSION: Heterogeneous left renal subcapsular collection as above. No hydronephrosis. ATED BY: KIRILL PATEL MD DICTATED DATE/TIME: 03/31/25 0058 PATIENT: TUNDE ESTEVESCT: [id number] UNIT: [id number] : 1975 LOC: PRAVIN IN ICU ROOM / BED: 0262D / A AGE / SEX: 50 / F ADM STATUS: ADM IN SERVICE 1625 ORDERING PHYSICIAN: MALU ALVAREZ MD PROCEDURE(s): MRCP - MRCP MRI REASON: Dilated common bile duct and cholelithiasis ORDER NUMBER(s): [id number], ACCESSION NUMBER(s): [id number] CLINICAL INFORMATION: Cholelithiasis and dilated common bile duct. TECHNIQUE: Multisequence multiplanar MRI images of the abdomen were obtained without IV contrast. Heavily T2-weighted MRCP images were obtained. 3D MRCP images were created. COMPARISON: Ultrasound dated 03/28/2025. FINDINGS: T2 hypointense gallstone at the gallbladder neck measures up to 2.3 cm. Gallbladder is mildly distended. Common bile duct measures up to 5 mm in diameter, within normal limits. No filling defect or stricture identified in the common bile duct on MRCP images. Pancreatic duct appears unremarkable. No intrahepatic biliary ductal dilatation. There is a moderate left subcapsular collection measuring up to 2.0 x 6.8 x 8.2 cm, likely hematoma. No hydronephrosis. IMPRESSION: 1. No biliary ductal dilatation. No filling defect or stricture identified in the common bile duct MRCP. 2. Cholelithiasis with mildly distended gallbladder. 3. Moderate-sized left subcapsular collection, likely subcapsular perirenal hematoma. Correlate with clinical findings. If clinically indicated, CT without and with contrast could be obtained to evaluate for associated mass lesion, active bleeding, or vascular lesion. Critical/unexpected findings Critical Result: Left subcapsular perinephric hematoma Findings discussed with the patient's RN, Lilly at 03/30/2025 01:22 PM CDT, and acknowledged receipt and understanding of the findings will call the patient's physician regarding the findings. .. ATED BY: RASHID PRABHAKAR DO DICTATED DATE/TIME: 03/30/25 1123 PATIENT: TUNDE ESTEVESCT: [id number] UNIT: [id number] : 1975 LOC: PRAVIN IN ICU ROOM / BED: 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 During the uneventful, intravenous administration of contrast material, multislice data acquisition was obtained through the abdomen and pelvis. The data set was subsequently reconstructed into axial images. Images were reviewed on a work station using a combination of axial and multiplanar using a variety of window levels and settings. Radiation Dose Information: CT Dose: CTDI volume is 14.27 mGy. Dose-length product is 1523.6 mGy*cm FINDINGS: NONCONTRAST STUDY: Lung Bases: No acute or significant lung base finding. Normal heart size. No pleural or pericardial effusion. Liver: The liver is normal in size. No focal lesions. Normal hepatic vascular enhancement. Gallbladder and Biliary Tree: Unremarkable Spleen: Unremarkable Pancreas: The pancreas is normal in appearance without focal lesions or abnormal enhancement. Adrenal Glands: Unremarkable Kidneys: In the periphery of the left kidney is a 6-7 cm curvilinear area of increased tissue density following the contour of the kidney. Tissue density is 62.75 Hounsfield units Bladder: Unremarkable Bowel: The stomach is grossly normal in appearance. Small bowel and colon are normal in caliber and distribution. The appendix is not visualized; however, no secondary findings of acute appendicitis identified. Ascites: Absent Lymphadenopathy: No mesenteric, retroperitoneal or periportal lymphadenopathy. Abdominal Wall and Mesentery: Unremarkable. Vasculature: The visualized abdominal aorta is normal in size and caliber. Abdominal and pelvic vessels demonstrate normal enhancement. Pelvic Organs: Unremarkable Musculoskeletal: No aggressive focal bony lesions, acute fractures or dislocation. Soft tissues: Unremarkable. POSTCONTRAST STUDY: Lung Bases: No acute or significant lung base finding. Normal heart size. No pleural or pericardial effusion. Liver: The liver is normal in size. No focal lesions. Normal hepatic vascular enhancement. Gallbladder and Biliary Tree: Unremarkable Spleen: Unremarkable Pancreas: The pancreas is normal in appearance without focal lesions or abnormal enhancement. Adrenal Glands: Unremarkable Kidneys: Following the contour of the left kidney is a crescentic shaped area of decreased attenuation compared to the renal cortex with tissue density 62.93 hounsfield units measures 6-7 cm. On the contrast CT of the kidney there appears to be fracture through the RENAL CORTEX into the peripelvic region seen on series 5, image 48. VASCULAR COMPROMISE IS QUESTIONABLE. TISSUE DENSITY OF THE UPPER POLE SEGMENT IS 99 HOUNSFIELD UNITS. TISSUE TISSUE DENSITY OF THE RENAL CORTEX IN THE LOWER POLE SEGMENT IS 114 HOUNSFIELD UNITS. Fracture of the left kidney appears to be grade 4. Bladder: Unremarkable Bowel: The stomach is grossly normal in appearance. Small bowel and colon are normal in caliber and distribution. The appendix is not visualized; however, no secondary findings of acute appendicitis identified. Ascites: Absent Lymphadenopathy: No mesenteric, retroperitoneal or periportal lymphadenopathy. Abdominal Wall and Mesentery: Unremarkable. Vasculature: The visualized abdominal aorta is normal in size and caliber. Abdominal and pelvic vessels demonstrate normal enhancement. Pelvic Organs: Unremarkable Musculoskeletal: No aggressive focal bony lesions, acute fractures or dislocation. Soft tissues: Unremarkable. IMPRESSION: 1. Findings most consistent with subcapsular hematoma left kidney measuring 6-7 cm. 2. Grade 4 fracture of the renal cortex. 3. No findings to suggest bowel obstruction. 4. All CT scans at this medical facility are performed using dose modulation techniques as appropriate to a performed exam including the following: Automated exposure control was utilized; adjustment of the MA and/or KV according to patient size; and use of iterative reconstruction technique. CRITICAL FINDINGS Critical Result: Renal trauma with subcapsular hematoma and grade 4 fracture through the cortex Findings discussed with ROCK MCINTOSH at 03/30/2025 04:26 PM, and acknowledged receipt and understanding of the findings. HS:Y ATED BY: ANTOINETTE JOEL Jr. DO DICTATED DATE/TIME: 03/30/25 1635 PATIENT: TUNDE ESTEVESCT: [id number] UNIT: [id number] : 1975 LOC: PRAVIN IN ICU ROOM / BED: [facility] / A AGE / SEX: 50 / F ADM STATUS: ADM IN SERVICE 1628 ORDERING PHYSICIAN: MALU ALVAREZ MD PROCEDURE(s): CXRP - CHEST PORTABLE REASON: Cough ORDER NUMBER(s): [id number], ACCESSION NUMBER(s): [id number] EXAM: XY CHEST PORTABLE TECHNIQUE: Single frontal chest radiograph CLINICAL HISTORY: Cough COMPARISON: XY CHEST PORTABLE on DOS: 03/27/25 Findings/Impression: Frontal chest radiograph demonstrates no acute osseous or superficial soft tissue abnormalities. The trachea is midline. Cardiomegaly. No pneumothorax, pleural effusions, or consolidations. ATED BY: ASHLEY NICOLAS DO DICTATED DATE/TIME: 03/29/25 1910 PATIENT: TUNDE ESTEVESCT: [id number] UNIT: [id number] : 1975 LOC: OVERFLOW ROOM / BED: [facility] / A AGE / SEX: 50 / F ADM STATUS: ADM IN SERVICE 0144 ORDERING PHYSICIAN: REJI BROWNE PROCEDURE(s): ABDL - ABDOMEN LIMITED REASON: acute abdominal pain ORDER NUMBER(s): [id number], ACCESSION NUMBER(s): [id number] INDICATION: acute abdominal pain TECHNIQUE: Multiple real-time sonographic images were obtained of the right upper quadrant. COMPARISON: None FINDINGS: The liver demonstrates diffuse increased echotexture without focal mass lesions. The liver measures 18.3 cm. Normal hepatopetal portal flow identified. No evidence of pleural effusion or abdominal ascites. There is no intrahepatic or extrahepatic ductal dilatation. The common duct measures 0.7 cm. Nonmobile gallstone noted within the neck of the gallbladder. The gallbladder wall measures 0.2 cm and is within normal limits. Negative sonographic goff's sign. The right kidney measures 10.3 cm. The right kidney is normal in contour, size, and shape. The echogenicity is normal. There is no hydronephrosis. The pancreas is not well visualized due to overlying bowel gas. IMPRESSION: 1. Uncomplicated cholelithiasis. 2. Borderline hepatomegaly and hepatic steatosis. 3. Mildly dilated common bile duct. ATED BY: ROMA HOYT MD DICTATED DATE/TIME: 03/28/25 0236 PATIENT: TUNDE ESTEVESCT: [id number] UNIT: [id number] : 1975 LOC: ER ROOM / BED: / AGE / SEX: 50 / F ADM STATUS: REG ER SERVICE 2246 ORDERING PHYSICIAN: DURGA MARCOS DO PROCEDURE(s): CXRP - CHEST PORTABLE REASON: fever,cough/n/v/chills/dizzy/holland. ORDER NUMBER(s): [id number], ACCESSION NUMBER(s): [id number] CHEST RADIOGRAPH Indication: fever,cough/n/v/chills/dizzy/holland. Technique: Single frontal view of the chest was obtained Comparison: None FINDINGS: Lines and Tubes: None Lungs: Clear Pleura: No effusion. No pneumothorax. Cardiomediastinal contours: Unremarkable Bones: Unremarkable IMPRESSION: Clear lungs. ATED BY: EMELIA PUGH DO DICTATED DATE/TIME: 03/28/25 0032 Laboratory Results Test 04/01/25 10:36 04/01/25 08:49 03/31/25 05:18 03/29/25 17:24 POC Glucose 229 mg/dl (70-106) Sodium Level 140 mmol/L (136-145) Potassium Level 3.6 mmol/L (3.5-5.1) Chloride Level 106 mmol/L (98-107) Carbon Dioxide Level 25 mmol/L (20-31) Anion Gap 9 (5-15) Blood Urea Nitrogen 9 mg/dL (9-23) Creatinine 0.51 mg/dL (0.550-1.02) Glomerular Filtration Rate Calc 113 mL/min (>90) BUN/Creatinine Ratio 17.6 (10.0-20.0) Serum Glucose 157 mg/dL (74-106) Calcium Level 10.4 mg/dL (8.7-10.4) White Blood Count 9.0 10^3/uL (4.4-10.8) Red Blood Count 3.67 10^6/uL (4.0-5.20) Hemoglobin 11.0 g/dL (12.2-16.2) Hematocrit 32.1 % (36.0-46.0) Mean Corpuscular Volume 87.7 fL (80.0-100.0) Mean Corpuscular Hemoglobin 29.9 pg (28.0-32.0) Mean Corpuscular Hemoglobin Concent 34.1 g/dL (32.0-36.0) Red Cell Distribution Width 13.8 % (11.8-14.3) Platelet Count 237 10^3/uL (140-450) Mean Platelet Volume 9.4 fL (6.9-10.8) Neutrophils (%) (Auto) 66.4 % (37.0-80.0) Lymphocytes (%) (Auto) 18.3 % (10.0-50.0) Monocytes (%) (Auto) 13.5 % (0.0-12.0) Eosinophils (%) (Auto) 1.3 % (0.0-7.0) Basophils (%) (Auto) 0.5 % (0.0-2.0) Neutrophils # (Auto) 6.0 10 ^3/uL (1.6-8.6) Lymphocytes # (Auto) 1.6 10 ^3/uL (0.4-5.4) Monocytes # (Auto) 1.2 10 ^3/uL (0-1.3) Eosinophils # (Auto) 0.1 10 ^3/uL (0-0.8) Basophils # (Auto) 0 10 ^3/uL (0-0.2) Nucleated Red Blood Cells 0.3 % Erythrocyte Sedimentation Rate 106 mm/hr (0-20) Total Bilirubin 0.4 mg/dL (0.2-1.0) Aspartate Amino Transferase (AST) 14 U/L (13-40) Alanine Aminotransferase (ALT) 20 U/L (7-40) Alkaline Phosphatase 112 U/L (46-116) Total Protein 6.1 g/dL (5.7-8.2) Albumin 3.6 g/dL (3.2-4.8) Parathyroid Hormone (Intact) 83.6 pg/mL (18.4-80.1) Test 03/28/25 11:43 03/28/25 01:30 03/28/25 01:00 03/27/25 23:08 Urine Color Light-yellow (Yellow) Urine Clarity Clear (Clear) Urine pH 5.5 (5.0-9.0) Urine Specific [place] 1.032 (1.001-1.035) Urine Protein Trace (Negative) Urine Ketones 2+ (Negative) Urine Blood 1+ /uL (Negative) Urine Nitrite 2+ (Negative) Urine Bilirubin Negative (Negative) Urine Urobilinogen Normal mg/dL (Negative) Urine Leukocyte Esterase Negative /uL (Negative) Urine RBC 13 /hpf (0 - 4) Urine Microscopic WBC 4 /HPF (0-5) Urine Squamous Epithelial Cells Few /hpf (<5) Urine Bacteria Few /hpf (None Seen) Urine Yeast (Budding) Few /hpf (None Seen) Urine Glucose 4+ mg/dL (Normal) Urine Opiates Screen Neg (NEGATIVE) Urine Fentanyl Screen Neg (NEGATIVE) Urine Barbiturates Screen Neg (NEGATIVE) Urine Phencyclidine Screen Neg (NEGATIVE) Urine Amphetamines Screen Neg (NEGATIVE) Urine Benzodiazepines Screen Neg (NEGATIVE) Urine Cocaine Screen Neg (NEGATIVE) Urine Cannabinoids Screen Neg (NEGATIVE) Lactic Acid Level 2.8 mmol/L (0.4-2.0) Troponin I High Sensitivity < 3 ng/L (</=34) Blood Gas Specimen Type Arterial Blood Gas Sample Site Right radial Blood Gas Patient Temperature 37.0 Arterial Blood Date Drawn [id number] Arterial Blood pH 7.356 (7.350-7.450) Arterial Blood Partial Pressure CO2 26.0 mmHg (32.0-45.0) Arterial Blood Partial Pressure O2 72.2 mmHg (83.0-108.0) Arterial Blood HCO3 14.2 mmol/L (21.0-28.0) Arterial Blood Oxygen Saturation 93.7 % (94.0-98.0) Arterial Blood Base Excess -9.6 mmol/L (-2.0-3.0) Arterial Blood Oxyhemoglobin 92.6 % (94.0-98.0) Arterial Blood Carboxyhemoglobin 0.8 % (0.5-1.5) Arterial Blood Methemoglobin 0.4 % (0.0-1.5) Denzel Test Yes Blood Gas Total Hemoglobin 13.30 g/dL (12.0-16.0) Blood Gas Modality Room air FiO2 % 21.0 Hemoglobin A1c 11.6 % A1C (<5.7) Magnesium Level 1.9 mg/dL (1.6-2.6) Beta-Hydroxybutyric Acid 2.606 mmol/L (< 0.4) Test 03/27/25 00:00 Influenza Type A Antigen Negative (Negative) Influenza Type B Antigen Negative (Negative) SARS-CoV-2 Antigen (Rapid) Negative (NEGATIVE) Other Laboratory Tests 04/01/25 08:49 03/31/25 05:18 Brief Hx & Hospital Course: History of presenting illness This is a 50-year-old female with past medical history of primary hypertension, type 2 diabetes mellitus, dyslipidemia who presented to the ED generalized body aches associated with nausea vomiting and dizziness. Patient also reported mild chills and headache, which according to the patient started two days ago but got worse recently prompting the visit to the ED. the patient states that she is not able to tolerate any food or liquids and is currently complaining of abdominal pain and nausea. On admission, patient was alert and oriented but slightly dizzy complaining of abdominal pain and nausea. Initial blood workup showed blood glucose of 576, anion gap of 14, ABG showed a pH of 7.35 with a bag HC03 of 14.2 and a beta hydroxybutyric acid of 2606. Based on symptoms and previous mentioned it labs patient might be cursing with mild resolving DKA. We will start the patient on IV fluids, insulin drip, potassium replacement and electrolytes monitoring. We will admit the patient for further assessment and management. Brief Hospital course Patient is a 50-year-old female (palauan speaking only) with multiple medical history including diabetes, hypertension, hyperlipidemia presented to the ED on 03/25/2025 with a two days history of nausea, vomiting ,and dizziness. Per patient, she normally takes metformin 1000 mg b.i.d. and has been complaint. When she started feeling unwell, she decided to present to the ED for evaluation. Patient also mentioned pain in her left flank region with radiation to the left lower quadrant. Initial blood work showed blood sugar in the 500s, A1c ok 11.5; Urinalysis showed evidence of UTI although urine culture did not grow any significant microorganism. Blood culture was positive for E. coli sensitive to quiet a number of antibiotic including Ceftriaxone. Patient was started on ceftriaxone for sepsis with bacteremia likely secondary to UTI and was also manage for resolving DKA with insulin drip and later transition to Lantus 15 unit daily. Two days after receiving the antibiotics, patient continued to have the left flank pain. CT abdomen revealed Findings most consistent with subcapsular hematoma left kidney measuring 6-7 cm ,Grade 4 fracture of the renal cortex. US of the gallbladder showed uncomplicated cholelithiasis. Urology consulted reviewed the case and advised patient on best rest and to repeat CT abdomen if the suspect the size is getting larger. A repeat CT scan on 03/31/2025 did not show any significant change in size. This morning patient said the pain is 3/10 and her fasting blooding 126. She denied fever, chills, nausea. Vitals are stable and her examination is unremarkable. I will discharge patient home on keflexin 500 bid for 10 days Review of Systems Constitutional: Denies fever, nausea HEENT: Denies headache, ear pain, ear discharges, conjunctivitis, nasal discharge throat pain Cardiovascular: Denies chest pain, palpitation, orthopnea, PND, or pedal edema Respiratory: Denies shortness of breath, cough cough, sputum production, hemoptysis, GI: denies nausea, vomiting, diarrhea, hematemesis, hematochezia, : mininum left lower abdominal pain with radiation to the left flank; Denies frequency, urgency, hematuria, Endocrine: Denies unintentional weight gain or weight loss, feeling of hot flashes, Jason: Denies easy bruising, bleeding disorders, epistaxis Musculoskeletal: Denies joint pains, muscle aches Psych: No evidence of depression, adeola, suicidal ideation Examination General Appearance: Alert, Oriented X3, Cooperative, HEENT: Atraumatic, PERRLA, EOMI, Mucous membrane moist/pink Respiratory: Clear to auscultation, Normal air movement Cardiovascular: Regular rate, Normal S1, Normal S2, No murmurs, no chest wall tenderness Abdominal: NO distention, mild left sided tenderness, bowel sounds present, no scars noted Extremities: No clubbing, No cyanosis, No edema, Normal pulses, No tenderness/swelling Skin: No rashes, No breakdown, No significant lesion Neuro: Normal gait, Normal speech, Strength at 5/5 X4 ext, Normal tone, Sensation intact, Cranial nerves 3-12 NL, Reflexes 2+ Psych/Mental Status: Mental status NL, Mood NL Diagnoses Sepsis due to UTI, POA Acute Bacteremia due to E. coli complicated UTI Hypertension Acute Metabolic acidosis with respiratory compensation Uncomplicated cholelithiasis. Borderline hepatomegaly and hepatic steatosis. Mildly dilated common bile duct left flank pain, likely pyelonephritis Left subcapsular hematoma. Heterogeneous subcapsular collection is again noted. This measures approximately 10 cm in length and 3 cm in thickness Acute abdominal tenderness likely due to mild resolving DKA, Hgb A1c: 11.5 Early/mild resolving DKA Diabetes Mellitus type II Dyslipidemia Hyponatremia Metabolic acidosis,resolved Discharge plan Discharge home in stable condition follow up at the discharge clinic in 7 days Continue home metformin follow with PCP in 2 weeks are re-evaluation antibiotics for 10 days Follow up with urology for revaluation patient to return to the ED if she does not feel well Discharge plan discussed with Dr. Palmer Consults/Reason for consult UROLOGY: Reason for Consultation: Subcapsular hematoma Pulmonology Reason for Consultation: Metabolic acidosis Condition at Discharge: Good Final Diagnosis/Problems List Sepsis due to UTI, POA Acute Bacteremia due to E. coli complicated UTI Hypertension Acute Metabolic acidosis with respiratory compensation Uncomplicated cholelithiasis. Borderline hepatomegaly and hepatic steatosis. Mildly dilated common bile duct left flank pain, likely pyelonephritis Left subcapsular hematoma. Heterogeneous subcapsular collection is again noted. This measures approximately 10 cm in length and 3 cm in thickness Acute abdominal tenderness likely due to mild resolving DKA, Hgb A1c: 11.5 Early/mild resolving DKA Diabetes Mellitus type II Dyslipidemia Hyponatremia Metabolic acidosis,resolved Discharge Disposition: Home Discharge Instruct/Medications Diet: See Comment Diet comment: diabetic diet Activity: Bed rest Follow Up/Referral: 7 days at the discharge clinic Medications: Keflexin Discharge Statement: "Patient was advised to return to the ER or call 911 if any headaches, dizziness, shortness of breath, chest pain, abdominal pain, bleeding, fevers, or worsening of medical condition. Patient was counseled about treatment plan, medications, possible side effects, patientverbalized understanding. All questions were answered to the best of my ability. This discharge took greater then 30 minutes in planning, reviewing documentation, counseling the patient, and discussing with other team members." ASSESSMENT ASSESSMENT Assessment Sepsis due to UTI, POA Bacteremia, E. coli UTI Hypertension Metabolic acidosis with almost respiratory compensation Uncomplicated cholelithiasis. Borderline hepatomegaly and hepatic steatosis. Mildly dilated common bile duct left flank pain, likely pyelonephritis Left subcapsular hematoma. Heterogeneous subcapsular collection is again noted. This measures approximately 10 cm in length and 3 cm in thickness Acute abdominal tenderness likely due to mild resolving DKA Hgb A1c: 11.5 Early/mild resolving DKA Diabetes Mellitus type II Dyslipidemia Hyponatremia Metabolic acidosis,resolved ROCK MCINTOSH RESIDENT Apr 01, 2025 13:38
[2025-04-01] MEDS ORDERED: CEPH500C PO (16:25)
== END 2025-04-01 17:32 | disposition home or self-care (01) | DRG 720 ==
LOC: ER 21:55 → OVERFLOW 03-28 01:18 → DOU IN ICU 03-28 23:15 → TELE-CENTR 04-01 03:35
PROVIDERS: ADMIT Internal Medicine Pulmonary Disease; ATTEND Emergency Medicine
DX: A41.51 Sepsis due to Escherichia coli [E. coli] (principal); E11.10 Type 2 diabetes mellitus with ketoacidosis without coma; R16.0 Hepatomegaly, not elsewhere classified; K83.8 Other specified diseases of biliary tract; E87.1 Hypo-osmolality and hyponatremia; S37.012A Minor contusion of left kidney, initial encounter; K76.0 Fatty (change of) liver, not elsewhere classified; E66.9 Obesity, unspecified; Z68.31 Body mass index [BMI] 31.0-31.9, adult; I10 Essential (primary) hypertension; Z20.822 Contact with and (suspected) exposure to COVID-19; K80.20 Calculus of gallbladder without cholecystitis without obstruction; E83.52 Hypercalcemia; E78.5 Hyperlipidemia, unspecified; N28.89 Other specified disorders of kidney and ureter; N12 Tubulo-interstitial nephritis, not specified as acute or chronic; Z87.891 Personal history of nicotine dependence; Z79.84 Long term (current) use of oral hypoglycemic drugs; X58.XXXA Exposure to other specified factors, initial encounter; Y93.89 Activity, other specified; Y92.89 Other specified places as the place of occurrence of the external cause; Y99.8 Other external cause status; N39.0 Urinary tract infection, site not specified
CPT/HCPCS: 36415; 36600; 71045; 74176; 74178; 74181; 76705; 76775; 80048; 80053; 80307; 81001; 82010; 82805; 82962; 83036; 83605; 83735; 83970; 84484; 85025; 85652; 87040; 87077; 87081; 87086; 87186; 87426; 87804; 93306; 99291; G0378; J0840; J1815; J1885; J2405